=== PATIENT | male | born 1945 | race Caucasian/White ===

== ENCOUNTER 2016-12-11 09:34 | Day surgery (SDC) | payer MEDICARE, OTHER ==
[2016-12-11] VITALS (12 sets, daily range): BP systolic 132–182; BP diastolic 63–99; PULSE 61–73; RESP 13–19; TEMP 97.3–98.3; O2SAT 92–95; Ht 177.8 cm; Wt 114.8 kg
[~2016-12-11] VITALS: Ht 177.8 cm; Wt 114.8 kg
[~2016-12-11 09:34] MED LIST: ALLO300T2 PO; ASPI-557 PO; CETI-269 PO; CITA10TA49 PO; CLOP75TA33 PO; DOCU100C PO; EZET10TA PO; FENO160T9 PO; FERR1TAB86 PO; FISH1CAP29 PO; FLUT16SP12 EA NOSTRIL; FURO40TA70 PO; HYDR-4246 PO; INSU100I3 SQ; INSU100V13 SQ; INSU100V28 SQ; INSU100V8 SQ; LABE100T PO; LEVO50TA72 PO; LORA1TAB3 PO; METO5TAB2 PO; MULT-795 PO; ONDA4TAB4 PO; POTA10TA92 PO; PRIM50TA30 PO; PROP60CA2 PO; ROSU10TA PO; TAMS0.4C20 PO; TEMA15CA PO; TIMO15DR15 BOTH EYES
--- OUTSIDE RECORDS SUMMARY | 2016-12-11 09:39 | XMS REPORT | Referral Summary ---
Author Author [facility] Organization [facility] Address Unknown Phone Unavailable Care Team Providers Care Graphic Design Assistant Name Role Phone ShamikaelmaPablo Primary Care Physician [phone] Encounter [facility] [id number] Date(s): 09/18/15 - 09/23/15 [facility] [address] [place] [address] [phone] Discharge Disposition: 01-Home or Self Care Attending Physician: Edy Rutherford MD Admitting Physician: Edy Rutherford MD Vital Signs Most recent to 1 oldest [Reference Range]: Temperature Oral 37 degC [35.8-37.3 degC] (09/23/15 11:00 AM) Temperature Skin 36.3 degC [36-37 degC] (09/18/15 3:05 PM) Temperature Rectal 37 degC [36.3-37.8 degC] (09/18/15 11:53 PM) Peripheral Pulse 81 bpm Rate [60-100 bpm] (09/23/15 11:00 AM) Heart Rate Monitored 83 bpm [60-100 bpm] (09/18/15 3:05 PM) Respiratory Rate 20 br/min [14-20 br/min] (09/23/15 11:00 AM) Blood Pressure 170/64 mmHg [90-140/60-90 mmHg] *HI* (09/23/15 11:41 AM) Mean Arterial 90 mmHg Pressure, Cuff (09/18/15 3:05 PM) SpO2 96 % (09/23/15 11:00 AM) Problem List Condition Effective Dates Status Health Status Informant Acute Resolved pain(Confirmed) Allergies(Confirmed) Active Anxiety(Confirmed) Active patient At risk for unstable Resolved blood glucose level(Confirmed)1 At risk of pressure Resolved sore(Confirmed) Bowel Resolved dysfunction(Confirme d)2 Depression(Confirmed Active patient ) High Active cholesterol(Confirme d) Hypertension(Confirm Active patient ed) Impaired skin Resolved integrity(Confirmed) 3 Obesity(Confirmed) Active patient Adenomatous rectal Active polyp(Confirmed) Tissue perfusion Resolved alteration(Confirmed )4 Tobacco Resolved patient user(Confirmed) Type 2 1985 Active diabetes(Confirmed) 1Problem added automatically by system based on initiation of At Risk for Unstable Blood Glucose Plan of Care 2Problem added automatically by system based on initiation of Bowel Dysfunction Plan of Care 3Problem added automatically by system based on initiation of Impaired Skin Integrity Plan of Care 4Problem added automatically by system based on initiation of Tissue Perfusion Cerebral Plan of Care Allergies, Adverse Reactions, Alerts No Known Allergies Medications allopurinol 300 mg, Oral, Daily, 0 Refill(s) Start Date: 12/05/14 Status: Ordered aspirin 81 mg, Oral, Daily, 0 Refill(s) Start Date: 12/05/14 Status: Ordered Centrum Silver 1 tabs, Oral, Daily, 0 Refill(s) Start Date: 12/05/14 Status: Ordered cetirizine 10 mg, Oral, BID, 0 Refill(s) Start Date: 12/05/14 Status: Ordered citalopram 10 mg oral tablet 1 tabs, Oral, Daily, 0 Refill(s) Start Date: 12/05/14 Status: Ordered clopidogrel 75 mg oral tablet 75 mg 1 tabs, Oral, Daily, # 30 tabs, 0 Refill(s) Start Date: 06/20/15 Status: Ordered Crestor 10 mg oral tablet 10 mg 1 tabs, Oral, Bedtime (once a day), 0 Refill(s) Start Date: 09/18/15 Status: Ordered DSS 100 mg oral capsule 200 mg 2 caps, Oral, Daily, 0 Refill(s) Start Date: 08/15/15 Status: Ordered fenofibrate 160 mg oral tablet 1 tabs, Oral, Daily, 0 Refill(s) Start Date: 12/05/14 Status: Ordered ferrous sulfate 325 mg, Oral, Mon//Fr, 0 Refill(s) Start Date: 12/05/14 Status: Ordered Fish Oil 1000 mg oral capsule 1,000 mg 1 caps, Oral, Daily, 0 Refill(s) Start Date: 06/20/15 Status: Ordered fluticasone 50 mcg/inh nasal spray 2 sprays, Nasal, BID, 0 Refill(s) Start Date: 12/05/14 Status: Ordered furosemide 40 mg oral tablet 1 tabs, Oral, Daily, 0 Refill(s) Start Date: 12/05/14 Status: Ordered labetalol 100 mg oral tablet 100 mg 1 tabs, Oral, BID, # 60 tabs, 0 Refill(s) Start Date: 06/20/15 Status: Ordered Lantus 70 units, SubCutaneous, Bedtime (once a day), 0 Refill(s) Start Date: 12/16/14 Status: Ordered Lantus 45 units, SubCutaneous, qAM, 0 Refill(s) Start Date: 12/16/14 Status: Ordered levothyroxine 50 mcg, Oral, Daily, 0 Refill(s) Start Date: 12/05/14 Status: Ordered LORazepam 1 mg, Oral, TID, as needed for anxiety, 0 Refill(s) Start Date: 12/05/14 Status: Ordered metoclopramide 5 mg oral tablet 5 mg 1 tabs, Oral, TID, 30 minutes before meals, 0 Refill(s) Start Date: 12/05/14 Status: Ordered nitroglycerin 0.4 mg sublingual tablet 0.4 mg 1 tabs, SubLingual, q5min, Angina/Chest Pain, 0 Refill(s) Start Date: 12/17/14 Status: Ordered NovoLOG FlexPen See Instructions, 25,23.25 SubCutaneous TIDAC, 0 Refill(s) Start Date: 06/20/15 Status: Ordered Percocet 5/325 oral tablet 1-2 tabs, Oral, q4hr, Pain Moderate (4-6), 0 Refill(s) Start Date: 09/23/15 Status: Ordered potassium chloride 10 mEq oral tablet, extended release 1 tabs, Oral, Daily, 0 Refill(s) Start Date: 12/05/14 Status: Ordered primidone 50 mg oral tablet 150 mg 3 tabs, Oral, TID, # 180 tabs, 0 Refill(s) Start Date: 06/20/15 Status: Ordered propranolol 60 mg oral capsule, extended release 60 mg 1 caps, Oral, Daily, 0 Refill(s) Start Date: 12/05/14 Status: Ordered Saline Mist 1 sprays, Nasal, QID, 0 Refill(s) Start Date: 09/18/15 Status: Ordered tamsulosin 0.4 mg, Oral, Daily, 0 Refill(s) Start Date: 12/05/14 Status: Ordered temazepam 15 mg oral capsule 15 mg 1 caps, Oral, Bedtime (once a day), as needed for sleep, 0 Refill(s) Start Date: 06/20/15 Status: Ordered Timoptic Ocudose 0.5% ophthalmic solution 1 drops, Eye-Both, BID, 0 Refill(s) Start Date: 12/05/14 Status: Ordered Zetia 10 mg oral tablet 10 mg 1 tabs, Oral, Daily, # 30 tabs, 0 Refill(s) Start Date: 06/20/15 Status: Ordered Results Hematology Most recent to 1 oldest [Reference Range]: WBC [4.8-10.8 6.1 10*3/uL 10*3/uL] (09/22/15 8:46 AM) RBC [4.60-6.20] 3.40 *LOW* (09/22/15 8:46 AM) Hgb [14.0-18.0 10.4 gm/dL gm/dL] *LOW* (09/22/15 8:46 AM) Hct [42.0-52.0 %] 31.9 % *LOW* (09/22/15 8:46 AM) MCV [82.0-99.0 fL] 93.8 fL (09/22/15 8:46 AM) MCH [27.0-32.0 pg] 30.6 pg (09/22/15 8:46 AM) MCHC [32.0-36.0 32.6 gm/dL gm/dL] (09/22/15 8:46 AM) RDW [11.5-14.5 %] 14.3 % (09/22/15 8:46 AM) Platelet [150-400 302 10*3/uL 10*3/uL] (09/22/15 8:46 AM) MPV [9.4-12.3 fL] 9.1 fL *LOW* (09/22/15 8:46 AM) Chemistry Most recent to 1 oldest [Reference Range]: Sodium Lvl [136-144 134 mEq/L mEq/L] *LOW* (09/23/15 9:21 AM) Potassium Lvl 3.8 mEq/L [3.6-5.1 mEq/L] (09/23/15 9:21 AM) Chloride [99-109 101 mEq/L mEq/L] (09/23/15 9:21 AM) CO2 [22-32 mEq/L] 25 mEq/L (09/23/15 9:21 AM) AGAP [3-20] 8 (09/23/15 9:21 AM) BUN [4-20 mg/dL] 12 mg/dL (09/23/15 9:21 AM) Glucose Lvl [70-100 291 mg/dL mg/dL] *HI* (09/23/15 9:21 AM) Creatinine Lvl 1.10 mg/dL [0.64-1.27 mg/dL] (09/23/15 9:21 AM) eGFR [>60] >60 1 (09/23/15 9:21 AM) Calcium Lvl 8.9 mg/dL [8.6-10.0 mg/dL] (09/23/15 9:21 AM) Albumin Lvl [3.5-4.8 3.1 gm/dL gm/dL] *LOW* (09/23/15 9:21 AM) Magnesium Lvl 1.9 mg/dL [1.8-2.5 mg/dL] (09/21/15 5:24 AM) Phosphorus [2.4-4.7 2.3 mg/dL 2 mg/dL] *LOW* (09/23/15 9:21 AM) Blood Glucose, 275 mg/dL Capillary [74-106 *HI* mg/dL] (09/23/15 11:40 AM) 1Result Comment: Multiply eGFR results by 1.21 for race. 2Result Comment: High dosages of liposomal Amphotericin B (AmBisome) therapy or other drug preparations that use a liposomal envelope to facilitate drug delivery may cause falsely elevated results for phosphorus. Immunizations Vaccine Date Refusal Reason tetanus-diphth toxoids (Td) adult/adol 02/09/02 Procedures Procedure Date Related Diagnosis Body Site Resection Colon Low Anterior Laparoscopic 09/18/15 Robotic1 Endoscopy Microsurgery Transanal2 08/17/15 Colonoscopy 06/08/15 Bypass Graft Coronary Artery3 12/12/14 [place] [facility] Endoscopic (Left)4 12/12/14 Hernia repair5 2010 Hernia 1971 Hernia 1969 Tonsillectomy and adenoidectomy 1945 REPLACE EAR DRUM - LEFT 1auto-populated from documented surgical case 2auto-populated from documented surgical case 3auto-populated from documented surgical case 4auto-populated from documented surgical case 5X 3 Social History Social History Type Response Smoking Status Former smoker Assessment and Plan No data available for this section
--- OUTSIDE RECORDS SUMMARY | 2016-12-11 09:39 | XMS REPORT | Continuity of Care Document ---
Author Author [facility] Organization [facility] Address Unknown Phone Unavailable Allergies Active Description Code Type Severity Reaction Onset Reported/Identified Relationship to Patient Clinical Status Yes No Known Allergies NKMA N/A N/A 12/05/2014 Yes No Known Allergies NKMA N/A N/A 12/05/2014 Medications Medication Packaging Start Date Stop Date Route Dosage Sig hydrALAZINE(hydrALAZINE) 0.5 mL 12/05/2014 12/13/2014 IV Push 10 mg 10 mg, IV Push, q4hr, PRN: Hypertension/High Blood Pressure morphine(morphine) 1 mL 12/05/2014 12/12/2014 IV Push 2 mg 2 mg, IV Push, q2hr, PRN: Angina/Chest Pain nitroglycerin(nitroglycerin) 1 tabs 12/05/2014 12/17/2014 SubLingual 0.4 mg 0.4 mg, SubLingual, q5min, PRN: Angina/Chest Pain enoxaparin(Lovenox) 0.8 mL 12/05/2014 12/11/2014 SubCutaneous 120 mg 120 mg=0.8 mL, SubCutaneous, q12hr aspirin(aspirin) 1 tabs 12/05/2014 12/12/2014 Oral 81 mg 81 mg , Oral, Daily losartan-hydrochlorothiazide(losartan-hydrochlorothiazide 100 mg-12.5 mg oral tablet) 1 tabs 12/05/2014 09/18/2015 Oral 1 tabs, Oral, Daily, 0 Refill(s) fluticasone nasal(fluticasone 50 mcg/inh nasal spray) 2 sprays 12/05/2014 Nasal 2 sprays, Nasal, BID, 0 Refill(s) labetalol(labetalol) 12/05/2014 12/17/2014 Oral 100 mg 100 mg, Oral, BID, 0 Refill(s) clopidogrel(clopidogrel) 12/05/2014 12/17/2014 Oral 75 mg 75 mg , Oral, Daily, 0 Refill(s) acetaminophen-diphenhydrAMINE(acetaminophen- diphenhydrAMINE 500 mg-25 mg oral tablet) 2 tabs 12/05/2014 12/17/2014 Oral 2 tabs, Oral, Bedtime (once a day), 0 Refill(s) atorvastatin(atorvastatin) 12/05/2014 06/20/2015 Oral 80 mg 80 mg, Oral, Bedtime (once a day), 0 Refill(s) primidone(primidone) 12/05/2014 08/15/2015 Oral 250 mg 250 mg, Oral, BID, 0 Refill(s) metoclopramide(metoclopramide 5 mg oral tablet) 1 tabs 12/05/2014 Oral 5 mg 5 mg=1 tabs, Oral, TID, 30 minutes before meals, 0 Refill(s) levothyroxine(levothyroxine) 12/05/2014 Oral 50 mcg 50 mcg, Oral, Daily, 0 Refill(s) potassium chloride(potassium chloride 10 mEq oral tablet, extended release) 1 tabs 12/05/2014 Oral 10 mEq 1 tabs, Oral, Daily, 0 Refill(s) fenofibrate(fenofibrate 160 mg oral tablet) 1 tabs 12/05/2014 Oral 160 mg 1 tabs, Oral, Daily, 0 Refill(s) cetirizine(cetirizine) 12/05/2014 Oral 10 mg 10 mg, Oral, BID , 0 Refill(s) citalopram(citalopram 10 mg oral tablet) 1 tabs 12/05/2014 Oral 10 mg 1 tabs, Oral, Daily, 0 Refill(s) tamsulosin(tamsulosin) 12/05/2014 Oral 0.4 mg 0.4 mg, Oral, Daily, 0 Refill(s) aspirin(aspirin) 12/05/2014 Oral 81 mg 81 mg, Oral, Daily, 0 Refill(s) allopurinol(allopurinol) 12/05/2014 Oral 300 mg 300 mg, Oral, Daily, 0 Refill(s) levETIRAcetam(levETIRAcetam 250 mg oral tablet) 1 tabs 12/05/2014 09/18/2015 Oral 250 mg 1 tabs, Oral, BID, 0 Refill(s) propranolol(propranolol 60 mg oral capsule, extended release) 1 caps 2014 Oral 60 mg 60 mg=1 caps, Oral, Daily, 0 Refill(s) furosemide(furosemide 40 mg oral tablet) 1 tabs 12/05/2014 Oral 40 mg 1 tabs, Oral, Daily, 0 Refill(s) ferrous sulfate(ferrous sulfate) 12/05/2014 Oral 325 mg 325 mg, Oral, Mon//, 0 Refill(s) LORazepam(LORazepam) 12/05/2014 Oral 1 mg 1 mg, Oral, TID, PRN: as needed for anxiety, 0 Refill(s) zolpidem(zolpidem 10 mg oral tablet) 1 tabs 12/05/20142015 Oral 10 mg 1 tabs, Oral, Bedtime (once a day), PRN: as needed for sleep, 0 Refill(s) insulin aspart(NovoLOG) 12/05/2014 12/16/2014 SubCutaneous 46 units 46 units, SubCutaneous, With Dinner, 0 Refill(s) insulin aspart(NovoLOG) 12/05/2014 12/16/2014 SubCutaneous 37 units 37 units, SubCutaneous, With Lunch, 0 Refill(s) insulin glargine(Lantus) 12/05/2014 12/16/2014 SubCutaneous 80 units 80 units, SubCutaneous, Bedtime (once a day), 2300, 0 Refill(s) timolol ophthalmic(Timoptic Ocudose 0.5% ophthalmic solution) 1 drops 2014 Eye-Both 1 drops, Eye-Both, BID, 0 Refill(s) allopurinol(allopurinol) 1 tabs 12/05/2014 12/17/2014 Oral 300 mg 300 mg, Oral, Daily acetaminophen-diphenhydrAMINE(acetaminophen- diphenhydrAMINE 500 mg-25 mg oral tablet) 2 tabs 12/05/2014 12/13/2014 Oral 2 tabs, Oral, Bedtime (once a day) fluticasone nasal(fluticasone 50 mcg/inh nasal spray) 2 sprays 12/05/2014 12/17/2014 Nasal 100 mcg 100 mcg=2 sprays, Nasal, BID insulin lispro(insulin lispro) 0.46 mL 12/05/2014 12/05/2014 SubCutaneous 46 units 46 units, SubCutaneous, With Dinner atorvastatin(atorvastatin) 1 tabs 12/05/2014 12/17/2014 Oral 80 mg 80 mg, Oral, Bedtime (once a day) labetalol(labetalol) 1 tabs 12/05/2014 12/08/2014 Oral 100 mg 100 mg, Oral, BID furosemide(furosemide) 1 tabs 12/05/2014 12/12/2014 Oral 40 mg 40 mg, Oral, Daily fenofibrate(fenofibrate 160 mg oral tablet) 1 tabs 12/05/2014 12/13/2014 Oral 160 mg 160 mg=1 tabs, Oral, With Breakfast insulin glargine(Lantus) 0.4 mL 12/05/2014 12/12/2014 SubCutaneous 40 units 40 units=0.4 mL, SubCutaneous, Bedtime (once a day) citalopram(citalopram) 1 tabs 12/05/2014 12/17/2014 Oral 10 mg 10 mg, Oral, Daily ferrous sulfate(ferrous sulfate) 1 tabs 12/05/2014 12/12/2014 Oral 325 mg 325 mg, Oral, Fri// losartan-hydrochlorothiazide(losartan-hydrochlorothiazide 100 mg-12.5 mg oral tablet) 1 tabs 12/05/2014 12/13/2014 Oral 1 tabs, Oral, Daily propranolol(propranolol) 1 caps 12/05/2014 12/12/2014 Oral 60 mg 60 mg, Oral, Daily primidone(primidone) 1 tabs 12/05/2014 12/17/2014 Oral 250 mg 250 mg=1 tabs, Oral, BID tamsulosin(tamsulosin) 1 caps 12/05/2014 12/17/2014 Oral 0.4 mg 0.4 mg, Oral, Daily metoclopramide(metoclopramide) 1 tabs 12/05/2014 12/12/2014 Oral 5 mg 5 mg, Oral, TIDAC LORazepam(LORazepam) 1 tabs 12/05/2014 12/13/2014 Oral 1 mg 1 mg , Oral, TID, PRN: Anxiety potassium chloride(potassium chloride 10 mEq oral tablet, extended release) 1 tabs 12/05/2014 12/13/2014 Oral 10 mEq 10 mEq=1 tabs, Oral, Daily timolol ophthalmic(timolol 0.5% ophthalmic solution) 1 drops 12/05/2014 12/17/2014 Eye-Both 1 drops, Eye-Both, BID levETIRAcetam(levETIRAcetam) 0.5 tabs 12/05/2014 12/12/2014 Oral 250 mg 250 mg, Oral, BID levothyroxine(levothyroxine) 1 tabs 12/05/2014 12/17/2014 Oral 50 mcg 50 mcg, Oral, Daily insulin lispro(insulin lispro HumaLOG sliding scale High) 12/05/2014 12/09/2014 SubCutaneous Sliding Scale High, SubCutaneous, As Indicated , PRN: Hyperglycemia/High Blood Sugar insulin lispro(insulin lispro) 0.2 mL 12/05/2014 12/05/2014 SubCutaneous 20 units 20 units, SubCutaneous, Once sodium chloride nasal([place] 0.65% nasal spray) 2 sprays 12/09/2014 12/17/2014 Nasal 2 sprays, Nasal, q1hr, PRN: Dry Nasal Passages mupirocin topical(Bactroban) 1 jakob 12/11/2014 12/12/2014 Nasal 1 jakob, Nasal, BID acetaminophen(acetaminophen) 1 supp 12/11/2014 12/14/2014 Rectal 650 mg 650 mg=1 supp, Rectal, q4hr, PRN: Pain zolpidem(Ambien) 1 tabs 12/11/2014 12/12/2014 Oral 5 mg 5 mg=1 tabs, Oral, Bedtime (once a day), PRN: Insomnia potassium chloride(potassium chloride 20 mEq oral tablet, extended release) 1 tabs 12/11/2014 12/11/2014 Oral 20 mEq 20 mEq=1 tabs, Oral, Once glucagon(glucagon) 1 mL 12/12/2014 12/12/2014 IntraMuscular 1 mg 1 mg=1 mL, IntraMuscular, As Indicated, PRN: Hypoglycemia/Low Blood Sugar Dextrose 50% in Water(Dextrose 50% in Water Injection) 25 mL 12/12/2014 12/12/2014 IV Push 12.5 g 12.5 g=25 mL, IV Push, q15min, PRN: Hypoglycemia/Low Blood Sugar Dextrose 10% in Water(Dextrose 10% in Water 250 mL) 250 mL 12/12/2014 12/12/2014 IV 50 mL/hr, IV metoclopramide(Reglan) 2 mL 12/12/2014 12/17/2014 IV Push 10 mg 10 mg=2 mL, IV Push, q6hr, PRN: Nausea HYDROcodone-acetaminophen([place] 5 mg-325 mg oral tablet) 12/12/2014 12/13/2014 Oral 1-2 tabs, Oral, q4hr, PRN: Pain Moderate (4-6) docusate(Colace) 2 caps 12/12/2014 12/17/2014 Oral 200 mg 200 mg=2 caps, Oral, Daily morphine(morphine) 12/12/2014 12/13/2014 IV Push 2-4 mg, IV Push, q2hr, PRN: Pain Severe (7-10) ondansetron(Zofran) 2 mL 12/12/2014 12/14/2014 IV Push 4 mg 4 mg= 2 mL, IV Push, q6hr, PRN: Nausea glucagon(glucagon) 1 mL 12/12/2014 12/17/2014 IntraMuscular 1 mg 1 mg=1 mL, IntraMuscular, As Indicated, PRN: Hypoglycemia/Low Blood Sugar Al hydroxide/Mg hydroxide/simethicone(Maalox Advanced Maximum Strength oral suspension) 15 mL 12/12/2014 12/17/2014 Oral 15 mL, Oral, q4hr, PRN: GERD/Heartburn Sodium Chloride 0.9%(Sodium Chloride 0.9% 250 mL) 250 mL 12/12/2014 12/13/2014 IV 10 mL/hr, IV polyethylene glycol 3350(MiraLax) 1 packets 12/12/20142014 Oral 17 g 17 g=1 packets, Oral, Daily albuterol(albuterol 5 mg/mL (0.5%) inhalation solution) 0.5 mL 12/12/2014 12/13/2014 NEB 2.5 mg 2.5 mg=0.5 mL, NEB, q4hr (scheduled), PRN: Other (See Comment) Dextrose 50% in Water(Dextrose 50% in Water Injection) 25 mL 12/12/2014 12/17/2014 IV Push 12.5 g 12.5 g=25 mL, IV Push, q15min, PRN: Hypoglycemia/Low Blood Sugar Dextrose 10% in Water(Dextrose 10% in Water 250 mL) 250 mL 12/12/2014 12/14/2014 IV 50 mL/hr, IV heparin(heparin) 1 mL 12/12/2014 12/17/2014 SubCutaneous 5,000 units 5,000 units=1 mL, SubCutaneous, TID senna(Senokot) 1 tabs 12/12/2014 12/17/2014 Oral 8.6 mg 8.6 mg=1 tabs, Oral, BID famotidine(Pepcid) 2 mL 12/12/2014 12/14/2014 IV Push 20 mg 20 mg =2 mL, IV Push, BID acetaminophen(acetaminophen) 1 supp 12/12/2014 12/17/2014 Rectal 650 mg 650 mg=1 supp, Rectal, q4hr, PRN: Fever aspirin(aspirin) 1 tabs 12/12/2014 12/17/2014 Oral 81 mg 81 mg= 1 tabs, Oral, Daily albumin human(albumin human 5% intravenous solution) 250 mL 12/12/2014 12/12/2014 IV Piggyback 12.5 g 12.5 g=250 mL, IV Piggyback, Once albumin human(albumin human 5% intravenous solution) 250 mL 12/12/2014 12/12/2014 IV Piggyback 12.5 g 12.5 g=250 mL, IV Piggyback, Once albuterol(albuterol 5 mg/mL (0.5%) inhalation solution) 0.5 mL 12/12/2014 12/13/2014 NEB 2.5 mg 2.5 mg=0.5 mL, NEB, q4hr (scheduled) insulin glargine(Lantus) 0.5 mL 12/12/2014 12/17/2014 SubCutaneous 50 units 50 units=0.5 mL, SubCutaneous, qAM insulin glargine(Lantus) 0.3 mL 12/12/2014 12/14/2014 SubCutaneous 30 units 30 units=0.3 mL, SubCutaneous, qAM furosemide(Lasix) 2 mL 12/13/2014 12/13/2014 IV Push 20 mg 20 mg =2 mL, IV Push, TID levETIRAcetam(levETIRAcetam) 0.5 tabs 12/13/2014 12/17/2014 Oral 250 mg 250 mg=0.5 tabs, Oral, BID metoprolol(Lopressor) 0.5 tabs 12/13/2014 12/17/2014 Oral 12.5 mg 12.5 mg=0.5 tabs, Oral, BID calcium carbonate(Tums) 2 tabs 12/13/2014 12/17/2014 Oral 1,000 mg 1,000 mg=2 tabs, Oral, TIDPC insulin glargine(Lantus) 0.2 mL 12/13/2014 12/13/2014 SubCutaneous 20 units 20 units=0.2 mL, SubCutaneous, Once albuterol(albuterol 5 mg/mL (0.5%) inhalation solution) 0.5 mL 12/13/2014 12/17/2014 NEB 2.5 mg 2.5 mg=0.5 mL, NEB, q2hr (scheduled), PRN: Other (See Comment) insulin lispro(insulin lispro HumaLOG sliding scale Medium ) 12/13/2014 12/17/2014 SubCutaneous Sliding Scale Medium, SubCutaneous, AC and HS , PRN: Hyperglycemia/High Blood Sugar HYDROmorphone(Dilaudid range dose) 1 mL 12/13/2014 12/15/2014 IV Push 1 mg 1 mg=1 mL, IV Push, q2hr, PRN: Pain Severe (7-10) ketorolac(Toradol) 1 mL 12/13/2014 12/13/2014 IV Push 15 mg 15 mg =1 mL, IV Push, Once bumetanide(Bumex) 4 mL 12/13/2014 12/17/2014 Bolus IV 1 mg 1 mg= 4 mL, Bolus IV, BID oxyCODONE-acetaminophen(Percocet 5/325 oral tablet range dose) 2 tabs 12/13/2014 12/13/2014 Oral 2 tabs, Oral, q4hr, PRN: Pain Moderate (4-6 ) oxyCODONE(oxyCODONE) 12/13/2014 12/13/2014 Oral 5-10mg, Oral , q4hr, PRN: Pain Moderate (4-6) oxyCODONE(oxyCODONE range dose) 2 tabs 12/13/2014 12/15/2014 Oral 10 mg 10 mg=2 tabs, Oral, q4hr, PRN: Pain Moderate (4-6) ondansetron(Zofran) 2 mL 12/14/2014 12/17/2014 IV Push 4 mg 4 mg= 2 mL, IV Push, q6hr, PRN: Nausea or Vomiting traZODone(traZODone) 1 tabs 12/14/2014 12/15/2014 Oral 150 mg 150 mg=1 tabs, Oral, Bedtime (once a day), PRN: Insomnia loratadine(loratadine) 1 tabs 12/15/2014 12/17/2014 Oral 10 mg 10 mg=1 tabs, Oral, Daily insulin glargine(Lantus) 0.8 mL 12/15/2014 12/17/2014 SubCutaneous 80 units 80 units=0.8 mL, SubCutaneous, Bedtime (once a day) zolpidem(Ambien) 1 tabs 12/15/2014 12/17/2014 Oral 5 mg 5 mg=1 tabs, Oral, Bedtime (once a day), PRN: Sleep HYDROmorphone(Dilaudid range dose) 1 mL 12/15/2014 12/17/2014 IV Push 1 mg 1 mg=1 mL, IV Push, q2hr, PRN: Pain Severe (7-10) oxyCODONE-acetaminophen(Percocet 7.5/325 oral tablet range dose) 2 tabs 12/15/2014 12/17/2014 Oral 2 tabs, Oral, q4hr, PRN: Pain Moderate (4-6 ) ketorolac(Toradol) 1 mL 12/15/2014 12/16/2014 IV Push 15 mg 15 mg =1 mL, IV Push, q6hr lactulose(lactulose) 30 mL 12/16/2014 12/17/2014 Oral 20 g 20 g= 30 mL, Oral, TID insulin glargine(Lantus) 12/16/2014 SubCutaneous 45 units 45 units, SubCutaneous, qAM, 0 Refill(s) insulin glargine(Lantus) 12/16/2014 SubCutaneous 70 units 70 units, SubCutaneous, Bedtime (once a day), 0 Refill(s) insulin lispro(HumaLOG) 12/16/2014 12/16/2014 SubCutaneous 40 units 40 units, SubCutaneous, TIDWM, 0 Refill(s) insulin lispro(HumaLOG) 12/16/2014 12/17/2014 SubCutaneous 40 units 40 units, SubCutaneous, TIDWM, 0 Refill(s) insulin lispro(insulin lispro) 0.2 mL 12/16/2014 12/16/2014 SubCutaneous 20 units 20 units=0.2 mL, SubCutaneous, Once insulin lispro(HumaLOG) 0.3 mL 12/17/2014 12/17/2014 SubCutaneous 30 units 30 units=0.3 mL, SubCutaneous, TIDWM insulin lispro(HumaLOG 100 units/mL subcutaneous solution) 12/17/2014 08/17/2015 SubCutaneous 30 units 30 units, SubCutaneous, TIDWM, 0 Refill(s) metoprolol(Lopressor) 0.5 tabs 12/17/2014 09/18/2015 Oral 12.5 mg 12.5 mg=0.5 tabs, Oral, BID, 0 Refill(s) nitroglycerin(nitroglycerin 0.4 mg sublingual tablet) 1 tabs 12/17/2014 SubLingual 0.4 mg 0.4 mg=1 tabs, SubLingual, q5min, PRN: Angina/Chest Pain, 0 Refill(s) oxyCODONE-acetaminophen(oxyCODONE-acetaminophen 7.5 mg-325 mg oral tablet) 2 tabs 12/17/2014 08/15/2015 Oral 2 tabs, Oral, q4hr, PRN: Pain Moderate (4-6), 0 Refill(s) timolol ophthalmic(Timoptic Ocudose 0.5% ophthalmic solution) 1 drops 201412/17/2014 Eye-Both 1 drops, Eye-Both, BID, 15 mL, 0 Refill(s) rosuvastatin(Crestor 40 mg oral tablet) 1 tabs 06/20/201509/18 Oral 40 mg 40 mg=1 tabs, Oral, Daily, 30 tabs, 0 Refill(s) clopidogrel(clopidogrel 75 mg oral tablet) 1 tabs 06/20/2015 Oral 75 mg 75 mg=1 tabs, Oral, Daily, 30 tabs, 0 Refill(s) labetalol(labetalol 100 mg oral tablet) 1 tabs 06/20/2015 Oral 100 mg 100 mg=1 tabs, Oral, BID, 60 tabs, 0 Refill(s) losartan-hydrochlorothiazide(losartan-hydrochlorothiazide 50 mg-12.5 mg oral tablet) 1 tabs 06/20/2015 08/17/2015 Oral 1 tabs, Oral, Daily, 30 tabs, 0 Refill(s) metoclopramide(metoclopramide 10 mg oral tablet) 1 tabs 06/20/2015 08/15/2015 Oral 10 mg 10 mg=1 tabs, Oral, TID, 0 Refill(s) primidone(primidone 50 mg oral tablet) 3 tabs 06/20/2015 Oral 150 mg 150 mg=3 tabs, Oral, TID, 180 tabs, 0 Refill(s) temazepam(temazepam 15 mg oral capsule) 1 caps 06/20/2015 Oral 15 mg 15 mg=1 caps, Oral, Bedtime (once a day), PRN: as needed for sleep, 0 Refill(s) ezetimibe(Zetia 10 mg oral tablet) 1 tabs 06/20/2015 Oral 10 mg 10 mg=1 tabs, Oral, Daily, 30 tabs, 0 Refill(s) Lactated Ringers Injection(Lactated Ringers Injection 1, 000 mL) 1,000 mL 201508/17/2015 IV 10 mL/hr, IV midazolam(Versed) 1 mL 08/17/2015 08/17/2015 IV Push 1 mg 1 mg= 1 mL, IV Push, q10min, PRN: Anxiety HYDROcodone-acetaminophen([place] 5 mg-325 mg oral tablet) 08/17/2015 08/17/2015 Oral 1-2 tabs, Oral, q4hr, PRN: Pain Moderate (4-6) ondansetron(Zofran) 2 mL 08/17/2015 08/17/2015 IV Push 4 mg 4 mg= 2 mL, IV Push, q6hr, PRN: Nausea or Vomiting HYDROcodone-acetaminophen([place] 5 mg-325 mg oral tablet) 08/17/2015 09/18/2015 Oral 1-2 tabs, Oral, q4hr, PRN: Pain Moderate (4-6), 0 Refill (s) ondansetron(Zofran) 2 mL 08/17/2015 08/17/2015 IV Push 4 mg 4 mg= 2 mL, IV Push, Once, PRN: Nausea or Vomiting HYDROmorphone(Dilaudid) 0.5 mL 08/17/2015 08/17/2015 IV Push 0.5 mg 0.5 mg=0.5 mL, IV Push, q5min, PRN: Pain alvimopan(Entereg) 1 caps 09/15/2015 09/23/2015 Oral 12 mg 12 mg= 1 caps, Oral, BID heparin(heparin) 1 mL 09/15/2015 09/18/2015 SubCutaneous 5,000 units 5,000 units=1 mL, SubCutaneous, Once rosuvastatin(Crestor 10 mg oral tablet) 1 tabs 09/18/2015 Oral 10 mg 10 mg=1 tabs, Oral, Bedtime (once a day), 0 Refill(s) Lactated Ringers Injection(Lactated Ringers Injection 1, 000 mL) 1,000 mL 201509/18/2015 IV 10 mL/hr, IV midazolam(Versed) 2 mL 09/18/2015 09/18/2015 IV Push 2 mg 2 mg= 2 mL, IV Push, Once midazolam(Versed) 2 mL 09/18/2015 09/18/2015 IV Push 2 mg 2 mg= 2 mL, IV Push, Once ondansetron(Zofran) 2 mL 09/18/2015 09/18/2015 IV Push 4 mg 4 mg= 2 mL, IV Push, Once HYDROmorphone(Dilaudid) 0.5 mL 09/18/2015 09/18/2015 IV Push 0.5 mg 0.5 mg=0.5 mL, IV Push, q5min, PRN: Pain insulin regular(insulin regular 100 units/mL human recombinant injectable solution) 0.03 mL 09/18/2015 09/18/2015 IV Push 3 units 3 units=0.03 mL, IV Push, Once Lactated Ringers Injection(Lactated Ringers Injection 1, 000 mL) 1,000 mL 201509/18/2015 IV 250 mL/hr, IV, Stop: 09/18/15 16:43:00 BLINTZE ROLLER ondansetron(Zofran) 2 mL 09/18/2015 09/23/2015 IV Push 4 mg 4 mg= 2 mL, IV Push, q6hr, PRN: Nausea or Vomiting HYDROmorphone(HYDROmorphone MET[employer]ICATING INSPECTOR 30 mg) 30 mL 09/18/20152015 IV 30 mg [employer]ATING [employer]OR, IV, Stop: 11/17/15 15:43:00 CDT enoxaparin(Lovenox) 0.4 mL 09/18/2015 09/19/2015 SubCutaneous 40 mg 40 mg=0.4 mL, SubCutaneous, Daily HYDROmorphone(Dilaudid) 09/18/2015 09/23/2015 IV Push 0.2- 0.5 mg, IV Push, q2hr, PRN: Pain Severe (7-10) gabapentin(Neurontin) 1 caps 09/18/2015 09/18/2015 Oral 300 mg 300 mg=1 caps, Oral, TID Lactated Ringers Injection(Lactated Ringers Injection 1, 000 mL) 1,000 mL 201509/21/2015 IV 50 mL/hr, IV oxyCODONE-acetaminophen(Percocet 5/325 oral tablet) 09/18/2015 09/23/2015 Oral 1-2 tabs, Oral, q4hr, PRN: Pain Moderate (4-6) docusate(Colace) 1 caps 09/18/2015 09/23/2015 Oral 100 mg 100 mg=1 caps, Oral, BID allopurinol(allopurinol) 1 tabs 09/18/2015 09/23/2015 Oral 300 mg 300 mg=1 tabs, Oral, Daily ezetimibe(Zetia) 1 tabs 09/18/2015 09/23/2015 Oral 10 mg 10 mg= 1 tabs, Oral, Daily fenofibrate(fenofibrate 160 mg oral tablet) 1 tabs 09/18/2015 09/23/2015 Oral 160 mg 160 mg=1 tabs, Oral, Daily clopidogrel(clopidogrel) 1 tabs 09/18/2015 09/23/2015 Oral 75 mg 75 mg=1 tabs, Oral, Daily citalopram(citalopram) 1 tabs 09/18/2015 09/23/2015 Oral 10 mg 10 mg=1 tabs, Oral, Daily ferrous sulfate(ferrous sulfate) 1 tabs 09/18/2015 09/23/2015 Oral 325 mg 325 mg=1 tabs, Oral, Mon//Fr aspirin(aspirin) 1 tabs 09/18/2015 09/23/2015 Oral 81 mg 81 mg= 1 tabs, Oral, Daily fluticasone nasal(fluticasone 50 mcg/inh nasal spray) 2 sprays 09/18/2015 09/23/2015 Nasal 100 mcg 100 mcg=2 sprays, Nasal, BID propranolol(propranolol) 1 caps 09/18/2015 09/23/2015 Oral 60 mg 60 mg=1 caps, Oral, Daily primidone(primidone) 3 tabs 09/18/2015 09/23/2015 Oral 150 mg 150 mg=3 tabs, Oral, TID atorvastatin(atorvastatin) 1 tabs 09/18/2015 09/23/2015 Oral 40 mg 40 mg=1 tabs, Oral, Bedtime (once a day) metoclopramide(metoclopramide) 1 tabs 09/18/2015 09/23/2015 Oral 5 mg 5 mg=1 tabs, Oral, TIDAC LORazepam(LORazepam) 1 tabs 09/18/2015 09/23/2015 Oral 1 mg 1 mg= 1 tabs, Oral, TID, PRN: Anxiety potassium chloride(potassium chloride 10 mEq oral tablet, extended release) 1 tabs 09/18/2015 09/23/2015 Oral 10 mEq 10 mEq=1 tabs, Oral, Daily labetalol(labetalol) 1 tabs 09/18/2015 09/23/2015 Oral 100 mg 100 mg=1 tabs, Oral, BID insulin detemir(Levemir) 0.45 mL 09/18/2015 09/23/2015 SubCutaneous 45 units 45 units=0.45 mL, SubCutaneous, qAM furosemide(furosemide 40 mg oral tablet) 1 tabs 09/18/2015 Oral 40 mg 40 mg=1 tabs, Oral, Daily nitroglycerin(nitroglycerin 0.4 mg sublingual tablet) 1 tabs 09/18/2015 09/23/2015 SubLingual 0.4 mg 0.4 mg=1 tabs, SubLingual, q5min, PRN: Angina/Chest Pain levothyroxine(levothyroxine) 1 tabs 09/18/2015 09/23/2015 Oral 50 mcg 50 mcg=1 tabs, Oral, Daily tamsulosin(tamsulosin) 1 caps 09/18/2015 09/23/2015 Oral 0.4 mg 0.4 mg=1 caps, Oral, Daily timolol ophthalmic(timolol maleate 0.5% ophthalmic solution ) 1 drops 09/18/2015 09/23/2015 Eye-Both 1 drops, Eye-Both, BID heparin(heparin) 1 mL 09/19/2015 09/23/2015 SubCutaneous 5,000 units 5,000 units=1 mL, SubCutaneous, q8hr (scheduled) scopolamine(scopolamine 1.5 mg transdermal film, extended release) 1 patches 09/2009/23/2015 Topical 1.5 mg 1.5 mg=1 patches, Topical, q3day oxyCODONE-acetaminophen(Percocet 5/325 oral tablet) 09/23/2015 Oral 1-2 tabs, Oral, q4hr, PRN: Pain Moderate (4-6), 0 Refill(s) Lactated Ringers Injection(Lactated Ringers Injection 500 mL) 500 mL 09/23/2016 09/23/2016 IV 20 mL/hr, IV Problems Date Dx Coded Attending Type Code Diagnosis Diagnosed By 10/09/2015 Edy Rutherford MD Final C20 Malignant neoplasm of rectum 10/09/2015 Edy Rutherford MD Final D64.9 Anemia, unspecified 10/09/2015 Edy Rutherford MD Final E11.9 Type 2 diabetes mellitus without complications 10/09/2015 Edy Rutherford MD Final E66.9 Obesity, unspecified 10/09/2015 Edy Rutherford MD Final E78.0 Pure hypercholesterolemia 10/09/2015 Edy Rutherford MD Final F32.9 Major depressive disorder, single episode, unspecified 10/09/2015 Edy Rutherford MD Final F41.9 Anxiety disorder, unspecified 10/09/2015 Edy Rutherford MD Final G47.33 Obstructive sleep apnea (adult) ( pediatric) 10/09/2015 Edy Ruhterford MD Final I12.9 Hypertensive chronic kidney disease with stage 1 through stage 4 chronic ki 10/09/2015 Edy Rutherford MD Final 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 Visit Date/Time Discharge Status Pt. Type Provider Facility Loc./Unit Complaint [id number] 09/18/2015 07:39:00 2015 13:23:00 DIS Inpatient Edy Rutherford MD [facility] [id number] Benign neoplasm of rectum [id number] 08/17/2015 07:13:00 2015 13:36:00 DIS Outpatient Edy Rutherford MD [facility] F3E Rectal Polyp [id number] 09/24/2016 05:15:47 Document Registration [id number] 09/24/2015 05:15:50 Document Registration [id number] 09/21/2015 05:16:49 Document Registration [id number] 09/20/2015 05:17:33 Document Registration [id number] 09/19/2015 05:17:34 Document Registration [id number] 09/19/2015 05:17:33 Document Registration [id number] 09/16/2015 05:16:14 Document Registration [id number] 08/18/2015 05:16:39 Document Registration [id number] 06/21/2015 05:16:21 Document Registration [id number] 05/17/2015 12:44:17 Document Registration [id number] 05/17/2015 12:29:13 Document Registration [id number] 05/17/2015 12:22:01 Document Registration [id number] 05/17/2015 12:15:16 Document Registration
--- OUTSIDE RECORDS SUMMARY | 2016-12-11 09:39 | XMS REPORT | Referral Summary ---
Author Author [facility] Organization [facility] Address Unknown Phone Unavailable Care Team Providers Care Resource Development Director Name Role Phone Pablo Prabhakar Primary Care Physician [phone] Encounter [facility] [id number] Date(s): 12/05/14 - 12/17/14 [facility] [address] [place] [address] HV [phone] Final: CORONARY ATHEROSCLEROSIS OF [place] CORONARY ARTERY Final: ACUTE POSTHEMORRHAGIC ANEMIA Final: OTHER AND UNSPECIFIED HYPERLIPIDEMIA Final: UNSPECIFIED ESSENTIAL HYPERTENSION Final: Diabetes mellitus without mention of complication, type II or unspecified type, not stated as uncontrolled Final: UNSPECIFIED GLAUCOMA Final: DEPRESSIVE DISORDER, NOT ELSEWHERE CLASSIFIED Final: ANXIETY STATE, UNSPECIFIED Final: Hypertrophy (benign) of prostate without urinary obstruction and other lower urinary tract (LUTS) Final: ABNORMAL INVOLUNTARY MOVEMENTS Final: Obstructive sleep apnea (adult) (pediatric) Final: OBESITY, UNSPECIFIED Final: HYPOCALCEMIA Final: Body Mass Index 37.0-37.9, adult [facility]ending [facility]: Francisco Last MD Admitting Physician: Francisco Last MD Vital Signs Most recent to 1 oldest [Reference Range]: Temperature Axillary 37.3 degC [35.2-36.7 degC] *HI* (12/16/14 5:00 AM) Temperature Oral 37.0 degC [35.8-37.3 degC] (12/17/14 12:00 PM) Temperature Temporal 36.9 degC Artery [36.3-37.8 (12/14/14 4:00 PM) degC] Apical Heart Rate 82 bpm [60-100 bpm] (12/12/14 5:22 AM) Peripheral Pulse 92 bpm Rate [60-100 bpm] (12/17/14 12:00 PM) Peripheral Pulse 114 bpm Rate with Activity (12/16/14 9:03 AM) Heart Rate Monitored 91 bpm [60-100 bpm] (12/15/14 3:49 AM) Respiratory Rate 18 br/min [14-20 br/min] (12/17/14 12:00 PM) Blood Pressure 136/68 mmHg [90-140/60-90 mmHg] (12/17/14 12:00 PM) Systolic Blood 150 mmHg Pressure with (12/14/14 9:35 AM) Activity Diastolic Blood 64 mmHg Pressure with (12/14/14 9:35 AM) Activity Mean Arterial 80 mmHg Pressure, Cuff (12/14/14 6:00 PM) Blood Pressure 103/54 mmHg Invasive (12/13/14 11:00 AM) [90-140/60-90 mmHg] Mean Arterial 68 mmHg Pressure, Invasive (12/13/14 11:00 AM) Systolic Blood 122 mmHg Pressure Invasive 2 (12/12/14 7:00 PM) [90-140 mmHg] Diastolic Blood 62 mmHg Pressure Invasive 2 (12/12/14 7:00 PM) [60-90 mmHg] SpO2 97 % (12/17/14 12:00 PM) Problem List Condition Effective Dates Status Health Status Informant Acute Active pain(Confirmed) Allergies(Confirmed) Active Anxiety(Confirmed) Active patient At risk of pressure Active sore(Confirmed) Depression(Confirmed Active patient ) High Active cholesterol(Confirme d) Hypertension(Confirm Active patient ed) Impaired skin Active integrity(Confirmed) 1 Obesity(Confirmed) Active patient Adenomatous rectal Active polyp(Confirmed) Tissue perfusion Active alteration(Confirmed )2 Tobacco Resolved patient user(Confirmed) Type 2 1985 Active diabetes(Confirmed) 1Problem added automatically by system based on initiation of Impaired Skin Integrity Plan of Care 2Problem added automatically by [...] Refill(s) Start Date: 06/20/15 Status: Ordered Crestor 40 mg oral tablet 40 mg 1 tabs, Oral, Daily, # 30 tabs, 0 Refill(s) Start Date: 06/20/15 Status: Ordered fenofibrate 160 mg oral tablet 1 tabs, Oral, Daily, 0 Refill(s) Start Date: 12/05/14 Status: Ordered ferrous sulfate 325 mg, Oral, Fri//, 0 Refill(s) Start Date: 12/05/14 Status: Ordered Fish Oil 1000 mg oral capsule 1,000 mg 1 caps, Oral, Daily, 0 Refill(s) Start Date: 06/20/15 Status: Ordered fluticasone 50 mcg/inh nasal spray 2 sprays, Nasal, BID, 0 Refill(s) Start Date: 12/05/14 Status: Ordered furosemide 40 mg oral tablet 1 tabs, Oral, Daily, 0 Refill(s) Start Date: 12/05/14 Status: Ordered HumaLOG 100 units/mL subcutaneous solution 30 units, SubCutaneous, TIDWM, 0 Refill(s) Start Date: 12/17/14 Status: Ordered labetalol 100 mg oral tablet 100 mg 1 tabs, Oral, BID, # 60 tabs, 0 Refill(s) Start Date: 06/20/15 Status: Ordered Lantus 80 units, SubCutaneous, Bedtime (once a day), 0 Refill(s) Start Date: 12/16/14 Status: Ordered Lantus 50 units, SubCutaneous, qAM, 0 Refill(s) Start Date: 12/16/14 Status: Ordered levETIRAcetam 250 mg oral tablet 1 tabs, Oral, BID, 0 Refill(s) Start Date: 12/05/14 Status: Ordered levothyroxine 50 mcg, Oral, Daily, 0 Refill(s) Start Date: 12/05/14 Status: Ordered Lopressor 12.5 mg 0.5 tabs, Oral, BID, 0 Refill(s) Start Date: 12/17/14 Status: Ordered LORazepam 1 mg, Oral, TID, as needed for anxiety, 0 Refill(s) Start Date: 12/05/14 Status: Ordered losartan-hydrochlorothiazide 100 mg-12.5 mg oral tablet 1 tabs, Oral, Daily, 0 Refill(s) Start Date: 12/05/14 Status: Ordered losartan-hydrochlorothiazide 50 mg-12.5 mg oral tablet 1 tabs, Oral, Daily, # 30 tabs, 0 Refill(s) Start Date: 06/20/15 Status: Ordered metoclopramide 10 mg oral tablet 10 mg 1 tabs, Oral, TID, 0 Refill(s) Start Date: 06/20/15 Status: Ordered metoclopramide 5 mg oral tablet 1 tabs, Oral, TID, 30 minutes before meals, 0 Refill(s) Start Date: 12/05/14 Status: Ordered nitroglycerin 0.4 mg sublingual tablet 0.4 mg 1 tabs, SubLingual, q5min, Angina/Chest Pain, 0 Refill(s) Start Date: 12/17/14 Status: Ordered NovoLOG FlexPen See Instructions, 5x3mL SubCutaneous TIDAC, 0 Refill(s) Start Date: 06/20/15 Status: Ordered oxyCODONE-acetaminophen 7.5 mg-325 mg oral tablet 2 tabs, Oral, q4hr, Pain Moderate (4-6), 0 Refill(s) Start Date: 12/17/14 Status: Ordered potassium chloride 10 mEq oral tablet, extended release 1 tabs, Oral, Daily, 0 Refill(s) Start Date: 12/05/14 Status: Ordered primidone 250 mg, Oral, BID, 0 Refill(s) Start Date: 12/05/14 Status: Ordered primidone 50 mg oral tablet 100 mg 2 tabs, Oral, TID, # 180 tabs, 0 Refill(s) Start Date: 06/20/15 Status: Ordered propranolol 60 mg oral capsule, extended release 1 caps, Oral, Daily, 0 Refill(s) Start Date: 12/05/14 Status: Ordered tamsulosin 0.4 mg, Oral, Daily, [...] 0 Refill(s) Start Date: 06/20/15 Status: Ordered zolpidem 10 mg oral tablet 1 tabs, Oral, Bedtime (once a day), as needed for sleep, 0 Refill(s) Start Date: 12/05/14 Status: Ordered Results Blood Gases Most recent to 1 2 oldest [Reference Range]: pH [7.35-7.45] 7.39 (12/13/14 4:10 AM) PCO2 Arterial POC 48 mmHg [35-45 mmHg] *HI* (12/12/14 10:35 AM) pCO2 Art [35-45 38 mmHg mmHg] (12/13/14 4:10 AM) CO2 Totl Art [23-27 28 mEq/L mEq/L] *HI* (12/12/14 10:35 AM) Arterial PO2 [80-100 68 mmHg mmHg] *LOW* (12/13/14 4:10 AM) Bicarbonate [22-26 22 mEq/L mEq/L] (12/13/14 4:10 AM) Bicarbonate Arterial 26 mEq/L POC [22-26 mEq/L] (12/12/14 10:35 AM) Base Excess Arterial 1 POC [0-2] (12/12/14 10:35 AM) Base Excess Art -2 [0-2] *LOW* (12/13/14 4:10 AM) pO2 Art [90.0-97.0 92.8 % %] (12/13/14 4:10 AM) O2 Saturation 99.0 % Arterial POC *HI* [90.0-97.0 %] (12/12/14 10:35 AM) pH Arterial POC 7.35 [7.35-7.45] (12/12/14 10:35 AM) PO2 Arterial POC 161 mmHg [80-100 mmHg] *HI* (12/12/14 10:35 AM) O2 Panel Room Air (12/13/14 4:10 AM) Vent Mode AC (12/12/14 12:25 PM) Set Vt 600 mL (5/18/15 12:25 PM) Set Rate 12 br/min (12/12/14 12:25 PM) FiO2 Art [0-100] 40 (12/12/14 4:10 PM) PEEP 5.0 (12/12/14 4:10 PM) Inspiratory Time Art 0.90 (12/12/14 12:25 PM) Tubing Compensation 100 % (12/12/14 4:10 PM) Total Rate 17 br/min (12/12/14 4:10 PM) Spon Vt 460 mL (12/12/14 4:10 PM) Spec Site A-Line (12/13/14 4:10 AM) Hematology Most recent to 1 2 oldest [Reference Range]: WBC [4.8-10.8 8.1 10*3/uL 10*3/uL] (12/15/14 10:14 AM) RBC [4.60-6.20 2.93 10*6/uL 10*6/uL] *LOW* (12/15/14 10:14 AM) Hgb [14.0-18.0 8.9 gm/dL gm/dL] *LOW* (12/15/14 10:14 AM) Hct [42.0-52.0 %] 26.9 % *LOW* (12/15/14 10:14 AM) MCV [82.0-99.0 fL] 91.8 fL (12/15/14 10:14 AM) MCH [27.0-32.0 pg] 30.4 pg (12/15/14 10:14 AM) MCHC [32.0-36.0 33.1 gm/dL gm/dL] (12/15/14 10:14 AM) RDW [11.5-14.5 %] 14.8 % *HI* (12/15/14 10:14 AM) Platelet [150-400 301 10*3/uL 10*3/uL] (12/15/14 10:14 AM) MPV [9.4-12.3 fL] 9.3 fL *LOW* (12/15/14 10:14 AM) Immature 0.3 % Granulocytes (12/11/14 5:22 AM) [0.0-1.0 %] Neutrophils [51-75 87 % %] *HI* (12/13/14 3:22 AM) Band Man [0-8 %] 7 % (12/13/14 3:22 AM) Lymphocytes [20-46 3 % %] *LOW* (12/13/14 3:22 AM) Monocytes [4-11 %] 4 % (12/13/14 3:22 AM) Eosinophils [0-4 %] 0 % (12/13/14 3:22 AM) Basophils [0-2 %] 0 % (12/13/14 3:22 AM) Neutro Absolute 8.93 10*3 [1.90-7.00 10*3] *HI* (12/13/14 3:22 AM) Lymph Absolute 0.29 10*3 [0.80-3.30 10*3] *LOW* (12/13/14 3:22 AM) [place] Absolute 0.38 10*3 [0.30-1.00 10*3] (12/13/14 3:22 AM) Eos Absolute 0.00 10*3 [0.00-0.50 10*3] (12/13/14 3:22 AM) Baso Absolute 0.01 10*3 [0.00-0.20 10*3] (12/13/14 3:22 AM) Nucleated RBC 0.0 /100 WBC Automated [0 /100 (12/13/14 3:22 AM) WBC] Differential Reviewed (12/13/14 3:22 AM) Coagulation Most recent to 1 2 oldest [Reference Range]: INR [0.9-1.2] 1.3 *HI* (12/12/14 10:30 AM) PTT [25.0-35.0] 29.3 (12/12/14 10:30 AM) Fibrinogen Lvl 220 mg/dL [187-520 mg/dL] (12/12/14 10:30 AM) P2Y12 Reaction Units 239.0 1 (12/10/14 6:37 AM) Thrombelastograph See Scan (12/12/14 10:30 AM) 1Result Comment: Pre-Drug PRU reference is 194-418. PRU levels lower than 194 are associated with expected antiplatelet effect. The performance characteristics of the P2Y12 inhibition test has been established for Clopidogrel, Prasugrel, and Ticagrelor. Expected values may be used for these drugs. Chemistry Most recent to 1 2 oldest [Reference Range]: Sodium Lvl [136-144 128 mEq/L mEq/L] *LOW* (12/16/14 9:36 AM) Potassium Lvl 4.0 mEq/L 1 [3.6-5.1 mEq/L] (12/16/14 9:36 AM) Chloride [99-109 95 mEq/L mEq/L] *LOW* (12/16/14 9:36 AM) CO2 [22-32 mEq/L] 23 mEq/L (12/16/14 9:36 AM) AGAP [3-20] 10 (12/16/14 9:36 AM) BUN [4-20 mg/dL] 32 mg/dL *HI* (12/16/14 9:36 AM) Glucose Lvl [70-100 276 mg/dL mg/dL] *HI* (12/16/14 9:36 AM) Creatinine Lvl 1.48 mg/dL [0.64-1.27 mg/dL] *HI* (12/16/14 9:36 AM) eGFR [>60] 47 2 *ABN* (12/16/14 9:36 AM) Calcium Lvl 8.4 mg/dL [8.6-10.0 mg/dL] *LOW* (12/16/14 9:36 AM) Albumin Lvl [3.5-4.8 3.4 gm/dL gm/dL] *LOW* (12/06/14 4:07 AM) Total Protein 7.0 gm/dL [6.1-7.9 gm/dL] (12/06/14 4:07 AM) Globulin [1.9-4.3 3.6 gm/dL gm/dL] (12/06/14 4:07 AM) ALT [17-63 U/L] 59 U/L (12/06/14 4:07 AM) AST [15-41 U/L] 53 U/L *HI* (12/06/14 4:07 AM) Alk Phos [26-104 68 U/L U/L] (12/06/14 4:07 AM) Bili Total [0.2-1.2 0.5 mg/dL 3 mg/dL] (12/06/14 4:07 AM) Magnesium Lvl 2.5 mg/dL [1.8-2.5 mg/dL] (12/14/14 3:21 AM) Calcium Ionized 1.20 mmol/L [1.19-1.41 mmol/L] (12/14/14 3:21 AM) Prealbumin [18-38 29 mg/dL mg/dL] (12/11/14 5:22 AM) Sodium Arterial NPT 139 mEq/L [136-144 mEq/L] (12/12/14 10:35 AM) Potassium Arterial 5.1 mEq/L 4 NPT [3.6-5.1 mEq/L] (12/12/14 10:35 AM) Calcium Ionized 1.04 mmol/L Arterial NPT *LOW* [1.19-1.41 mmol/L] (12/12/14 10:35 AM) HCT Arterial NPT 26.0 % (12/12/14 10:35 AM) HGB Arterial NPT 8.8 gm/dL (12/12/14 10:35 AM) Arterial Glucose NPT 117 mg/dL [70-100 mg/dL] *HI* (12/12/14 10:35 AM) Activated Clotting 116 Time NPT [100-146] (12/12/14 10:35 AM) Blood Glucose, 200 mg/dL 200 mg/dL Capillary [74-106 *HI* *HI* mg/dL] (12/17/14 1:39 PM) (12/17/14 1:39 PM) Blood Glucose, Low Capillary Out of (12/10/14 5:00 PM) Range Chol [0-200 mg/dL] 206 mg/dL *HI* (12/06/14 4:07 AM) Trig [0-150 mg/dL] 418 mg/dL *HI* (12/06/14 4:07 AM) HDL [>40 mg/dL] 34 mg/dL *ABN* (12/06/14 4:07 AM) LDL [0-100] INVALID 5 (12/06/14 4:07 AM) VLDL Cholesterol INVALID [0-30] (12/06/14 4:07 AM) Cardiac Risk 6.1 [0.0-5.7] *HI* (12/06/14 4:07 AM) Hgb A1c [4.1-5.6 %] 8.4 % *HI* (12/06/14 4:07 AM) eAvg Glucose 194.4 mg/dL (12/06/14 4:07 AM) 1Result Comment: Hemolyzed specimen. The following test may be affected: Potassium. 2Result Comment: Multiply eGFR results by 1.21 for race. 3Result Comment: Naproxen, specifically the metabolite O-desmethylnaproxen, may cause spurious elevation in Total Bilirubin levels. 4Result Comment: This test was performed on a whole blood specimen. The presence or absence of hemolysis cannot be assessed. Hemolysis can falsely elevate potassium levels. Normals are for venous specimens only. 5Result Comment: LDL and VLDL are invalid with Triglyceride greater than 400. Urinalysis Most recent to 1 2 oldest [Reference Range]: UA Color Lt Yellow (12/11/14 2:21 AM) UA Appear Clear (12/11/14 2:21 AM) UA pH [5.0-8.0] 5.0 (12/11/14 2:21 AM) UA Leuk Est Negative [Negative] (12/11/14 2:21 AM) UA Nitrite Negative [Negative] (12/11/14 2:21 AM) UA Protein Negative [Negative] (12/11/14 2:21 AM) UA Glucose Negative [Negative] (12/11/14 2:21 AM) UA Ketones Negative [Negative] (12/11/14 2:21 AM) UA Urobilinogen Negative [<1.0] (12/11/14 2:21 AM) UA Bili [Negative] Negative (12/11/14 2:21 AM) UA Blood [Negative] Negative (12/11/14 2:21 AM) UA Spec Grav 1.009 [1.003-1.030] (12/11/14 2:21 AM) Type Clean Catch (12/11/14 2:21 AM) Blood Bank Results Most recent to 1 2 oldest [Reference Range]: ABO/Rh O POS (12/11/14 5:22 AM) Antibody Screen Tube NEG (12/11/14 5:22 AM) Microbiology Reports TEST: MRSA Screen Culture STATUS: Auth (Verified) BODY SITE: SOURCE: Nares COLLECTED DATE/TIME: 12/11/14 2:22 AM MRSA Screen Culture No Methicillin Resistant Staphylococcus aureus isolated. Immunizations Vaccine Date Refusal Reason tetanus-diphth toxoids (Td) adult/adol 02/09/02 Procedures Procedure Date Related Diagnosis Body Site Colonoscopy 06/08/15 Bypass Graft Coronary Artery1 12/12/14 [place] [facility] Endoscopic (Left)2 12/12/14 Hernia repair 2011 Hernia 1971 Hernia 1969 Tonsillectomy and adenoidectomy 194 1auto-populated from documented surgical case 2auto-populated from documented surgical case Social History Social History Type Response Smoking Status Former smoker Assessment and Plan No data available for this section
--- OUTSIDE RECORDS SUMMARY | 2016-12-11 09:40 | XMS REPORT | Referral Summary ---
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 Discharge Disposition: 01-Home or Self Care Attending Physician: Fernando Leos MD Admitting Physician: Fernando Leos MD Referring Physician: Sesar Prabhakar MD Vital Signs Most recent to 1 oldest [Reference Range]: Temperature Tympanic 37 degC [36.6-38.1 degC] (06/20/15 2:19 PM) Blood Pressure 122/68 mmHg [90-140/60-90 mmHg] (06/20/15 2:19 PM) Problem List Condition Effective Dates Status Health Status Informant Acute Active pain(Confirmed) Allergies(Confirmed) Active Anxiety(Confirmed) Active patient At risk of pressure Active sore(Confirmed) Depression(Confirmed Active patient ) High Active cholesterol(Confirme d) Hypertension(Confirm Active patient ed) Impaired skin Active integrity(Confirmed) 1 Obesity(Confirmed) Active patient Tissue perfusion Active alteration(Confirmed )2 Tobacco Resolved [...] Refill(s) Start Date: 12/05/14 Status: Ordered Results No data available for this section Immunizations Vaccine Date Refusal Reason tetanus-diphth toxoids (Td) adult/adol 02/09/02 Procedures Procedure Date Related Diagnosis Body Site Colonoscopy 06/08/15 Bypass Graft Coronary Artery1 12/12/14 [place] [facility] Endoscopic (Left)2 12/12/14 Hernia repair 2010 Hernia 1971 Hernia 1969 Tonsillectomy and adenoidectomy 194 1auto-populated from documented surgical case 2auto-populated from documented surgical case Social History Social History Type Response Smoking Status Former smoker Assessment and Plan No data available for this section
--- OUTSIDE RECORDS SUMMARY | 2016-12-11 09:40 | XMS REPORT | Referral Summary ---
Author Author [facility] Organization [facility] Address Unknown Phone Unavailable Care Team Providers Care Irrigation System Operator Name Role Phone VannaPablo Primary Care Physician [phone] Encounter [facility] [id number] Date(s): 08/17/15 - 08/17/15 [facility] [address] [place] [address] Discharge Disposition: -Home or Self Care Attending Physician: Edy Rutherford MD Admitting Physician: Edy Rutherford MD Vital Signs Most recent to 1 oldest [Reference Range]: Temperature Skin 36.4 degC [36-37 degC] (08/17/15 1:05 PM) Peripheral Pulse 79 bpm Rate [60-100 bpm] (08/17/15 7:39 AM) Heart Rate Monitored 88 bpm [60-100 bpm] (08/17/15 1:05 PM) Respiratory Rate 20 br/min [14-20 br/min] (08/17/15 1:05 PM) Blood Pressure 124/64 mmHg [90-140/60-90 mmHg] (08/17/15 1:05 PM) Mean Arterial 90 mmHg Pressure, Cuff (08/17/15 11:45 AM) SpO2 93 % (08/17/15 12:20 PM) Problem List Condition Effective Dates Status [...] 0 Refill(s) Start Date: 06/20/15 Status: Ordered DSS 100 mg oral capsule [...] 0 Refill(s) Start Date: 12/17/14 Status: Ordered [place] 5 mg-325 mg oral tablet 1-2 tabs, Oral, q4hr, Pain Moderate (4-6), 0 Refill(s) Start Date: 08/17/15 Status: Ordered NovoLOG FlexPen See Instructions, 25,23.25 SubCutaneous TIDAC, 0 Refill(s) Start Date: 06/20/15 Status: Ordered potassium chloride 10 mEq oral [...] Refill(s) Start Date: 12/05/14 Status: Ordered Results Hematology Most recent to 1 oldest [Reference Range]: WBC [4.8-10.8 9.2 10*3/uL 10*3/uL] (08/17/15 7:34 AM) RBC [4.60-6.20] 4.02 *LOW* (08/17/15 7:34 AM) Hgb [14.0-18.0 12.6 gm/dL gm/dL] *LOW* (08/17/15 7:34 AM) Hct [42.0-52.0 %] 37.9 % *LOW* (08/17/15 7:34 AM) MCV [82.0-99.0 fL] 94.3 fL (08/17/15 7:34 AM) MCH [27.0-32.0 pg] 31.3 pg (08/17/15 7:34 AM) MCHC [32.0-36.0 33.2 gm/dL gm/dL] (08/17/15 7:34 AM) RDW [11.5-14.5 %] 13.9 % (08/17/15 7:34 AM) Platelet [150-400 307 10*3/uL 10*3/uL] (08/17/15 7:34 AM) MPV [9.4-12.3 fL] 9.2 fL *LOW* (08/17/15 7:34 AM) Chemistry Most recent to 1 oldest [Reference Range]: Sodium Lvl [136-144 138 mEq/L mEq/L] (08/17/15 7:34 AM) Potassium Lvl 3.8 mEq/L [3.6-5.1 mEq/L] (08/17/15 7:34 AM) Chloride [99-109 100 mEq/L mEq/L] (08/17/15 7:34 AM) CO2 [22-32 mEq/L] 24 mEq/L (08/17/15 7:34 AM) AGAP [3-20] 14 (08/17/15 7:34 AM) BUN [4-20 mg/dL] 17 mg/dL (08/17/15 7:34 AM) Glucose Lvl [70-100 138 mg/dL mg/dL] *HI* (08/17/15 7:34 AM) Creatinine Lvl 1.81 mg/dL [0.64-1.27 mg/dL] *HI* (08/17/15 7:34 AM) eGFR [>60] 37 1 *ABN* (08/17/15 7:34 AM) Calcium Lvl 9.7 mg/dL [8.6-10.0 mg/dL] (08/17/15 7:34 AM) Blood Glucose, 129 mg/dL Capillary [70-100 *HI* mg/dL] (08/17/15 10:49 AM) 1Result Comment: Multiply eGFR results by 1.21 for race. Immunizations Vaccine Date Refusal Reason tetanus-diphth toxoids (Td) adult/adol 02/09/02 Procedures Procedure Date Related Diagnosis Body Site Endoscopy Microsurgery Transanal1 08/17/15 Colonoscopy 06/08/15 Bypass Graft Coronary Artery2 12/12/14 [place] [facility] Endoscopic (Left)3 12/12/14 Hernia repair4 2010 Hernia 1971 Hernia 1969 Tonsillectomy and adenoidectomy 194 REPLACE EAR DRUM - LEFT 1auto-populated from documented surgical case 2auto-populated from documented surgical case 3auto-populated from documented surgical case 4X 3 Social History Social History Type Response Smoking Status Former smoker Assessment and Plan No data available for this section
--- OUTSIDE RECORDS SUMMARY | 2016-12-11 09:40 | XMS REPORT | Continuity of Care Document ---
Author Author [facility] Organization [facility] Address Unknown Phone Unavailable Support Name Relationship Address Phone FLOYD RAGLAND MD Caregiver [address] [place] [address] Unavailable EMILIA AMAYA MD Caregiver [address] [place] [address] Unavailable TG NELSON Next Of Kin [address] [place] [address] [phone] c Insurance Providers Guarantor Maciel Be Address [address] [place] [address] C Email DENIED/NO TO PT PORTAL Payer Medicare Policy Number [id number] Subscriber's Name Maciel Be Relationship 18 Self Effective Date 08 Payer Other A Insurance Policy Number [id number] Subscriber's Name Maciel Be Relationship 18 Self Group Number [id number] Advance Directives Directive Response Recorded Date/Time Ordered Resuscitation Status Full Code 02/12/16 3:22pm Resuscitation Documents on File No 02/14/16 9:07am DPOA for Healthcare Only No 02/14/16 9:07am Problems Active Problems Medical Problem Onset Date Status Burn of hand, right Unknown Acute Medications Current Home Medications Medication Dose Units Route Directions Days Qty Instructions Start Date Allopurinol 300 Mg Tablet 1 Tab Oral Daily 12/05/14 Aspirin (Aspir 81) 81 Mg Tablet. 1 Tab Oral Daily 12/05/14 Cetirizine Hcl 10 Mg Tablet 1 Tab Oral Twice A Day 12/05/14 Citalopram Hydrobromide (Celexa) 10 Mg Tablet 10 Mg Oral Daily Clopidogrel Bisulfate (Clopidogrel) 75 Mg Tablet 1 Tab Oral Daily 01/26/15 Docusate Sodium (Stool Softener) 100 Mg Capsule 2 Cap Oral Bedtime 02/12/16 Ezetimibe (Zetia) 10 Mg Tablet 1 Tab Oral Daily 02/12/16 Fenofibrate,Micronized (Fenofibrate) 160 Mg Tablet 160 Mg Oral Daily 07/09/12 Ferrous Sulfate 1 Tab Tablet 1 Tab Oral Daily 05/07/13 Fish Oil/[place]-3 Fatty Acids (Fish Oil 1,000 Mg Capsule) 1 Cap Capsule 1 Cap Oral Daily 11/29/09 Fluticasone Propionate (Flonase) 16 Gm [place].susp 2 [place] Each Nostril Twice A Day 11/29/09 Furosemide (Lasix) 40 Mg Tablet 1 Tab Oral Daily 01/02/11 Hydrocodone/Acetaminophen ([place] 5-325 Tablet) 5-325 Tablet 1-2 Tab Oral Every 4 Hours Prn as needed for Pain 60 Tablet 02/14/16 Insulin Aspart (Novolog Flexpen) 1 Unit Pen 25 Unit Sub-Q Give With Breakfast 12/05/14 Insulin Aspart (Novolog) 100 Unit/Ml Inj 23 Unit Sub-Q Give With Lunch 02/12/16 Insulin Aspart (Novolog) 100 Unit/Ml Inj 25 Unit Sub-Q Give With Supper 02/12/16 Insulin Glargine (Lantus) 100 U/Ml Vial 70 U Sub-Q Bedtime Insulin Glargine,Hum.rec.anlog (Lantus) 100 Unit/Ml Inj 45 Unit Sub-Q Daily Morning Insulin 02/12/16 Labetalol Hcl 100 Mg Tablet 1 Tab Oral Twice A Day 12/05/14 Levothyroxine Sodium 50 Mcg Tablet 1 Tab Oral Daily 11/29/09 Lorazepam 1 Mg Tablet 1 Tab Oral As Needed 02/12/16 Metoclopramide Hcl 5 Mg Tablet 5 Mg Oral Before Meals And At Bedtime Take 1 tablet, by mouth, 4 times a day (with meals and at bedtime). 02/12/16 Multivitamins W-Minerals/Lut (Centrum Silver Tablet) 1 Tab Tablet 1 Tab Oral Daily 05/07/13 Ondansetron Hcl (Zofran) 4 Mg Tablet 4 Mg Oral Every 6 Hours for Nausea 10 Tablet 02/14/16 Potassium Chloride (Klor-Con 10) 10 Meq Tablet.sa 1 Tab Oral Daily 01/02/11 Primidone 50 Mg Tablet 50 Mg Oral Three Times A Day Take 1 tablet, by mouth, 3 times a day. 02/12/16 Propranolol Hcl 60 Mg Cap.sa.24h 1 Cap Oral Daily 12/05/14 Rosuvastatin Calcium (Crestor) 10 Mg Tablet 10 Mg Oral Daily Take 1 tablet, by mouth, one time a day at bedtime. 02/12/16 Tamsulosin Hcl (Flomax) 0.4 Mg Cap.sr.24h 0.4 Mg Oral Daily 01/02 Temazepam 15 Mg Capsule 1 Tab Oral Bedtime 01/26/15 Timolol Maleate (Timolol Maleate 0.5%) 15 Ml Drops 1 Drop Both Eyes Twice A Day 07/09/13 Past Home Medications Medication Directions Ordered Status Acetaminophen 500 Mg Tablet, 1000 Mg Oral Every 6 Hours as needed for Pain Discontinued Aspirin 325 Mg Tablet.dr, 325 Mg Oral Daily 07/09/13 Discontinued Calcium Carbonate (Calcium) 600 Mg Tablet, 600 Mg Oral Twice A Day 11/29/09 Discontinued Carvedilol (Coreg) 3.125 Mg Tablet, 3.125 Mg Oral Daily 11/29/09 Discontinued Carvedilol (Coreg) 3.125 Mg Tablet, 3.125 Mg Oral Daily 11/28/09 Discontinued Clonazepam 1 Mg Tablet, 1 Mg Oral Bedtime 11/29/09 Discontinued Clopidogrel Bisulfate (Plavix) 75 Mg Tablet, 75 Mg Oral Daily 07/09/13 Discontinued Ezetimibe (Zetia) 10 Mg Tablet, 10 Mg Oral Daily 11/29/09 Discontinued Fenofibrate Nanocrystallized (Tricor) 145 Mg Tablet, 145 Mg Oral Daily Discontinued Fexofenadine Hcl (Kerline) 180 Mg Tablet, 180 Mg Oral Daily 11/29/09 Discontinued Insulin Aspart (Novolog) 100 U/Ml Vial, U Sub-Q As Directed 05/10/13 Discontinued Insulin Aspart (Novolog) 100 U/Ml Insuln.pen, 100 U Sub-Q 20U Bid,15U At Noon 11/29/09 Discontinued Lisinopril/Hydrochlorothiazide (Lisinopril-Hctz 20-12.5 Tab) 1 Tab Tablet, 1 Tab Oral Twice A Day 11/29/09 Discontinued Lorazepam (Ativan) 1 Mg Tablet, 1 Mg Oral Twice A Day 11/29/09 Discontinued Metaxalone (Skelaxin) 800 Mg Tablet, 800 Mg Oral Tid Prn 11/29/09 Discontinued Nefazodone Hcl 200 Mg Tablet, 200 Mg Oral 1 In Am, 2 At Hs 11/29/09 Discontinued Potassium Chloride (K-Tab) 10 Meq Tablet.sa, 10 Meq Oral Daily 11/28/09 Discontinued Pravastatin Sodium 20 Mg Tablet, 20 Mg Oral Daily 05/07/13 Discontinued Primidone 250 Mg Tablet, 2 Tab Oral Twice A Day 12/05/14 Discontinued Rosuvastatin Calcium (Crestor) 40 Mg Tablet, 40 Mg Oral Daily 11/29/09 Discontinued Topiramate 25 Mg Tablet, 25 Mg Oral Twice A Day 08/02/13 Discontinued Social History Social History Problem Response Recorded Date/Time Onset Date Status Chewing Tobacco Status No 08/02/2013 12:38pm Not Applicable Not Applicable Hx Substance Use No 02/13/2016 10:50am Not Applicable Not Applicable Hx Alcohol Use No 02/14/2016 10:22am Not Applicable Not Applicable Has the pt used tobacco in the last 12 months No 02/13/2016 10:50am Not Applicable Not Applicable Query Response Start Date Stop Date Smoking Status Never smoker Hospital Discharge Instructions Instructions: Care Instructions: Reason for Hospitalization: Left knee arthroscopy PMM, PLM I was in the hospital because (patient own words): LEFT KNEE ARTHROSCOPY AND MENISCUS RPAIR Discharge Diet: regular Discharge Activity: WBAT Follow Up Appointments: FEBRUARY 21 AT 0830 Pending Lab / Results: No Pending Lab Condition at time of discharge: Good Plan of Care Discharge Date 02/14/16 1:00pm Instructions/Education Provided [facility] Knee Scope Prescriptions See Medication Section Functional Status Query Response Date Recorded Ability to complete ADL's impeded by No change February 14, 2016 9:07am Allergies, Adverse Reactions, Alerts No known allergies. Immunizations Query Response on File Recorded Date/Time Hx Influenza Vaccination Y APR 2015 02/13/16 10:50am Hx Pneumococcal Vaccination Y UNKNOWN DATE 02/13/16 10:50am Hx Influenza Vaccination Y APR 2015 02/13/16 10:50am Hx Tetanus Diptheria Y 4-5 YRS AGO 01/26/15 10:25am Vital Signs Acute Vital Signs Vital Response Date/Time Temperature (Fahrenheit) 98.6 deg F (96.8 - 99.1) 02/14/2016 11:11am Temperature (Calculated Celsius) 37.50285 degrees C (36.0 - 37.3) 02/14/2016 11:11am Temperature Source Temporal 02/14/2016 11:11am Pulse Rate (adult) 71 bpm (60 - 100) 02/14/2016 12:30pm Respiratory Rate 12 breaths/min (10 - 20) 02/14/2016 12:30pm O2 Sat by Pulse Oximetry 94 % (90 - 100) 02/14/2016 12:30pm Oxygen Delivery Method Room Air 02/14/2016 12:30pm Blood Pressure 156/69 mm Hg 02/14/2016 12:30pm Blood Pressure Source Automatic Cuff 02/14/2016 12:30pm Height (Feet) 5 feet 02/14/2016 9:00am Height (Inches) 10.00 inches 02/14/2016 9:00am Weight (Kilograms) 117.700 kg 02/14/2016 9:00am Body Mass Index (BMI) 37.2 02/14/2016 9:00am Results Laboratory Results Test Name Result Units Flags Reference Collection Date/Time Result Date/ Time Comments White Blood Count 4.5 T/MM3 4.5-11.0 02/14/2016 9:02/14/2016 9: 59am Red Blood Count 3.92 M/MM3 L 4.50-5.90 02/14/2016 9:02/14/2016 9: 59am Hemoglobin 12.2 GM/DL L 13.5-17.5 02/14/2016 9:02/14/2016 9:59am Hematocrit 37.6 % L 41-53 02/14/2016 9:02/14/2016 9:59am Mean Corpuscular Volume 95.9 UM3 80-100 02/14/2016 9:02/14/2016 9: 59am Mean Corpuscular Hemoglobin 31.1 UUG 26-34 02/14/2016 9:2015 9:59am Mean Corpuscular Hemoglobin Concent 32.4 GM/DL 31-37 02/14/2016 9:02/14/2016 9:59am RDW Standard Deviation 51.4 FL H 36.9-50.2 02/14/2016 9:02/14/2016 9:59am Platelet Count 295 T/MM3 130-400 02/14/2016 9:02/14/2016 9:59am Mean Platelet Volume 9.2 UM3 L 9.4-12.4 02/14/2016 9:02/14/2016 9: 59am Neutrophils (%) (Auto) 62.5 % 33-66 02/14/2016 9:02/14/2016 9: 59am Lymphocytes (%) (Auto) 20.5 % L 23-45 02/14/2016 9:02/14/2016 9: 59am Monocytes (%) (Auto) 10.8 % H 0-9.0 02/14/2016 9:02/14/2016 9:59am Eosinophils (%) (Auto) 4.9 % H 0-4 02/14/2016 9:02/14/2016 9:59am Basophils (%) (Auto) 1.1 % 0-2 02/14/2016 9:02/14/2016 9:59am Immature Granulocyte % (Auto) 0.2 % 0.0-0.5 02/14/2016 9:2015 9:59am Absolute Neutrophils (auto) 2.8 T/MM3 1.8-7.7 02/14/2016 9:2015 9:59am Absolute Lymphocytes (auto) 0.9 T/MM3 L 1-4.8 02/14/2016 9:2015 9:59am Absolute Monocytes (auto) 0.5 T/MM3 0-0.8 02/14/2016 9:02/14/2016 9:59am Absolute Eosinophils (auto) 0.2 T/MM3 0-0.5 02/14/2016 9:2015 9:59am Absolute Basophils (auto) 0.1 T/MM3 0-0.2 02/14/2016 9:02/14/2016 9:59am Absolute Immature Granulocyte (auto 0.01 T/MM3 0.00-0.03 02/14/2016 9: 02/14/2016 9:59am Icterus Index < 2 0-7 02/14/2016 9:02/14/2016 9:48am Chemistry Specimen Hemolysis < 15 0-25 02/14/2016 9:02/14/2016 9 :48am 0-25: Specimen Exhibited No Hemolysis. Turbidity < 20 0-20 02/14/2016 9:02/14/2016 9:48am Sodium Level 146 MEQ/L H 134-144 02/14/2016 9:02/14/2016 9:48am Potassium Level 4.4 MEQ/L 3.6-5 02/14/2016 9:02/14/2016 9:48am Chloride Level 108 MEQ/L H 98-107 02/14/2016 9:02/14/2016 9:48am Carbon Dioxide Level 22 MEQ/L 22-30 02/14/2016 9:02/14/2016 9: 48am Anion Gap 16 MEQ/L H 5-15 02/14/2016 9:02/14/2016 9:48am Blood Urea Nitrogen 15.0 MG/DL 04-1602/14/2016 9:02/14/2016 9: 48am Creatinine 1.1 MG/DL 0.8-1.5 02/14/2016 9:02/14/2016 9:48am BUN/Creatinine Ratio 14 RATIO 01-2002/14/2016 9:02/14/2016 9:48am Glomerular Filtration Rate Calc 66 02/14/2016 9:02/14/2016 9: 48am Glucose Level 146 MG/DL H 75-110 02/14/2016 9:02/14/2016 9:48am Calculated Osmolality 285 MOSM/KG H 261-280 02/14/2016 9:2015 9:48am Calcium Level 9.2 MG/DL 8.4-10.2 02/14/2016 9:02/14/2016 9:48am Total Bilirubin 0.40 MG/DL 0.20-1.30 02/14/2016 9:02/14/2016 9: 48am Alkaline Phosphatase 72 U/L 38-126 02/14/2016 9:02/14/2016 9:48am Total Protein 7.4 G/DL 6.3-8.2 02/14/2016 9:02/14/2016 9:48am Albumin 4.2 G/DL 3.5-5.0 02/14/2016 9:02/14/2016 9:48am Globulin 3.2 G/DL 2.4-3.6 02/14/2016 9:02/14/2016 9:48am Albumin/Globulin Ratio 1.3 RATIO 1.1-2.2 02/14/2016 9:26am 02/14/2016 9 :48am Aspartate Amino Transf (AST/SGOT) 75 U/L H 17-59 02/14/2016 9:26am 02/13 9:48am Alanine Aminotransferase (ALT/SGPT) 50 U/L 21-72 02/14/2016 9:26am 9:48am Procedures Procedure Status Date Provider(s) X-RAY EXAM OF KNEE 3 Completed 12/01/15 MRI JNT OF LWR EXTRE W/O DYE Completed 01/05/16 Knee arthroscopy, left Completed 02/14/16 EMILIA AMAYA MD Encounters Encounter Location Arrival/Admit Date Discharge/Depart Date Attending Provider Departed [facility] 02/14/16 8:44am 02/14/16 1: 00pm EMILIA AMAYA MD Registered [facility] 01/05/16 6:18am FLOYD RAGLAND MD Registered [facility] 12/01/15 2:52pm FLOYD RAGLAND MD
--- OUTSIDE RECORDS SUMMARY | 2016-12-11 09:40 | XMS REPORT | Referral Summary ---
Author Author [facility] Organization [facility] Address Unknown Phone Unavailable Care Team Providers Care Diesel Mechanic Apprentice Name Role Phone Pablo Prabhakar Primary Care Physician [phone] Encounter [facility] [id number] Date(s): 06/27/15 - 06/27/15 [facility] [address] [place], [place] [address] Discharge Diagnosis: Adenomatous rectal polyp Discharge Disposition: 01-Home or Self Care Attending Physician: Edy Rutherford MD Admitting Physician: Edy Rutherford MD Referring Physician: Fernando Leos MD Vital Signs Most recent to 1 oldest [Reference Range]: Blood Pressure 132/76 mmHg [90-140/60-90 mmHg] (06/27/15 11:33 AM) Problem List Condition Effective Dates Status [...] Procedures Procedure Date Related Diagnosis Body Site Sigmoidoscopy, flexible; diagnostic, 06/27/15 including collection of specimen(s) by brushing or washing, when performed (separate procedure) Colonoscopy 06/08/15 Bypass Graft Coronary Artery1 12/12/14 [place] [facility] Endoscopic (Left)2 12/12/14 Hernia repair 2010 Hernia 1971 Hernia 1969 Tonsillectomy and adenoidectomy 194 1auto-populated from documented surgical case 2auto-populated from documented surgical case Social History Social History Type Response Smoking Status Former smoker Assessment and Plan Extracted from: Title: Office Visit Note Author: Edy Rutherford MD Date: 06/27/15 Assessment/Plan Adenomatous rectal polyp This polyp is amenable to a TEMS excision. This we be a full-thickness excision of the polypectomy base. Risks and benefits of this were reviewed. We'll plan this at [place]. Very likely be able to go home the same day. All of his questions were answered. Ordered: Office Visit Level 4 New [id number] sigmoidoscopy flx dx w/wo collj specimens [id number] Extracted from: Title: Ambulatory Patient Education Author: Rodrigo Sparrow LPN Date: Family Medicine Colorectal Cancer Colorectal cancer is an abnormal growth of tissue (tumor) in the colon or rectum that is cancerous (malignant). Unlike noncancerous (benign) tumors, malignant tumors can spread to other parts of your body. The colon is the large bowel or large intestine. The rectum is the last several inches of the colon. RISK FACTORS The exact cause of colorectal cancer is unknown. However, the following factors may increase your chances of getting colorectal cancer: Age older than 50 years. Abnormal growths (polyps) on the inner wall of the colon or rectum. Diabetes. race. Family history of hereditary nonpolyposis colorectal cancer. This condition is caused by changes in the genes that are responsible for repairing mismatched DNA. Personal history of cancer. A person who has already had colorectal cancer may develop it a second time. Also, women with a history of ovarian, uterine, or breast cancer are at a somewhat higher risk of developing colorectal cancer. Certain hereditary conditions. Eating a diet that is high in fat (especially animal fat) and low in fiber , fruits, and vegetables. Sedentary lifestyle. Inflammatory bowel disease, including ulcerative colitis and Crohn's disease. Smoking. Excessive alcohol use. SYMPTOMS Early colorectal cancer often does not cause symptoms. As the cancer grows, symptoms may include: Changes in bowel habits. Diarrhea. Constipation. Feeling like the bowel does not empty completely after a bowel movement. Blood in the stool. Stools that are narrower than usual. Abdominal discomfort, pain, bloating, fullness, or cramps. Frequent gas pain. Unexplained weight loss. Constant tiredness. Nausea and vomiting. DIAGNOSIS Your health care provider will ask about your medical history. He or she may also perform a number of procedures, such as: A physical exam. A digital rectal exam. A fecal occult blood test. A barium enema. Blood tests. X-rays. Imaging tests, such as CT scans or MRIs. Taking a tissue sample (biopsy) from your colon or rectum to look for cancer cells. A sigmoidoscopy to view the inside of the last part of your colon. A colonoscopy to view the inside of your entire colon. An endorectal ultrasound to see how deep a rectal tumor has grown and whether the cancer has spread to lymph nodes or other nearby tissues. Your cancer will be staged to determine its severity and extent. Staging is a careful attempt to find out the size of the tumor, whether the cancer has spread , and if so, to what parts of the body. You may need to have more tests to determine the stage of your cancer. The test results will help determine what treatment plan is best for you. Stage 0. The cancer is found only in the innermost lining of the colon or rectum. Stage I. The cancer has grown into the inner wall of the colon or rectum. The cancer has not yet reached the outer wall of the colon. Stage II. The cancer extends more deeply into or through the wall of the colon or rectum. It may have invaded nearby tissue, but cancer cells have not spread to the lymph nodes. Stage III. The cancer has spread to nearby lymph nodes but not to other parts of the body. Stage IV. The cancer has spread to other parts of the body, such as the liver or lungs. Your health care provider may tell you the detailed stage of your cancer, which includes both a number and a letter. TREATMENT Depending on the type and stage, colorectal cancer may be treated with surgery, radiation therapy, chemotherapy, targeted therapy, or radiofrequency ablation. Some people have a combination of these therapies. Surgery may be done to remove the polyps from your colon. In early stages, your health care provider may be able to do this during a colonoscopy. In later stages, surgery may be done to remove part of your colon. HOME CARE INSTRUCTIONS Take medicines only as directed by your health care provider. Maintain a healthy diet. Consider joining a support group. This may help you learn to cope with the stress of having colorectal cancer. Seek advice to help you manage treatment of side effects. Keep all follow-up visits as directed by your health care provider. Inform your cancer specialist if you are admitted to the hospital. SEEK MEDICAL CARE IF: Your diarrhea or constipation does not go away. Your bowel habits change. You have increased abdominal pain. You notice new fatigue or weakness. You lose weight. Document Released: 07/14/2006 Document Revised: 11/28/2014 Document Reviewed: ExitCare Patient Information 2015 [employer]. This information is not intended to replace advice given to you by your health care provider. Make sure you discuss any questions you have with your health care provider. No follow up information was provided.
--- OUTSIDE RECORDS SUMMARY | 2016-12-11 09:40 | XMS REPORT | Referral Summary ---
Author Author [facility] Organization [facility] Address Unknown Phone Unavailable Care Team Providers Care Building Guard Deputy Sheriff Name Role Phone Pablo Prabhakar Primary Care Physician [phone] Encounter [facility] Date(s): 08/22/15 - 08/22/15 [facility] [address] [place], [place] [address] Discharge Disposition: 01-Home or Self Care Attending Physician: Edy Rutherford MD Admitting Physician: Edy Rutherford MD Referring Physician: Sesar Prabhakar MD Vital Signs No data available for this section Problem List Condition Effective Dates Status Health [...] 0 Refill(s) Start Date: 12/17/14 Status: Ordered [place] 5 mg-325 mg oral tablet 1-2 tabs, [...] Colonoscopy 06/08/15 Bypass Graft Coronary Artery2 12/12/14 [place] [facility] Endoscopic (Left)3 12/12/14 Hernia repair4 2010 Hernia 1971 Hernia 1969 Tonsillectomy and adenoidectomy 194 REPLACE EAR DRUM - LEFT 1auto-populated from documented surgical case 2auto-populated from documented surgical case 3auto-populated from documented surgical case 4X 3 Social History Social History Type Response Smoking Status Former smoker Assessment and Plan No data available for this section
--- OUTSIDE RECORDS SUMMARY | 2016-12-11 09:40 | XMS REPORT | Referral Summary ---
Author Author [facility] Organization [facility] Address Unknown Phone Unavailable Care Team Providers Care General Supervisor Name Role Phone Pablo Prabhakar Primary Care Physician [phone] Encounter Date(s): 09/23/16 - 09/23/16 [facility] Surgery [address] [place], [place] [address] Discharge Diagnosis: Encounter for screening colonoscopy Discharge Disposition: 01-Home or Self Care Attending Physician: Edy Rutherford MD Admitting Physician: Edy Rutherford MD Vital Signs Most recent to 1 oldest [Reference Range]: Temperature Temporal 37.2 degC Artery [36.3-37.8 (09/23/16 6:37 AM) degC] Peripheral Pulse 82 bpm Rate [60-100 bpm] (09/23/16 6:37 AM) Respiratory Rate 16 br/min [14-20 br/min] (09/23/16 6:37 AM) Blood Pressure 154/80 mmHg [90-140/60-90 mmHg] *HI* (09/23/16 6:37 AM) SpO2 94 % (09/23/16 6:37 AM) Problem List Condition Effective Dates Status Health Status Informant Acute Resolved pain(Confirmed) Allergies(Confirmed) Active Anxiety(Confirmed) Active patient Coronary Active patient arteriosclerosis(Con firmed)1 At risk for unstable Resolved blood glucose level(Confirmed)2 At risk of pressure Resolved sore(Confirmed) Bowel Resolved dysfunction(Confirme d)3 Depression(Confirmed Active patient ) GERD Active patient (gastroesophageal reflux disease)(Confirmed) High Active cholesterol(Confirme d) Hypertension(Confirm Active patient ed) Hypothyroid(Confirme Active patient d) Impaired skin Resolved integrity(Confirmed) 4 Obesity(Confirmed) Active patient Adenomatous rectal Active polyp(Confirmed) Tissue perfusion Resolved alteration(Confirmed )5 Tobacco Resolved patient user(Confirmed) Type 2 1985 Active diabetes(Confirmed) 13 yrs ago 2Problem added automatically by system based on initiation of At Risk for Unstable Blood Glucose Plan of Care 3Problem added automatically by system based on initiation of Bowel Dysfunction Plan of Care 4Problem added automatically by system based on initiation of Impaired Skin Integrity Plan of Care 5Problem added automatically by system based on initiation [...] Refill(s) Start Date: 06/20/15 Status: Ordered Results Chemistry Most recent to 1 oldest [Reference Range]: Blood Glucose, 154 mg/dL Capillary [74-106 *HI* mg/dL] (09/23/16 6:51 AM) Immunizations Given and Recorded Vaccine Date Status Refusal Reason tetanus-diphth toxoids (Td) adult/adol 02/09/02 Given Procedures Procedure Date Related Diagnosis Body Site Colonoscopy 09/23/16 Resection Colon Low Anterior Laparoscopic 09/18/15 Robotic1 Endoscopy Microsurgery Transanal2 08/17/15 Colonoscopy 06/08/15 Bypass Graft Coronary Artery3 12/12/14 Corinne Vein Endoscopic (Left)4 12/12/14 Hernia repair5 2010 Hernia 1971 Hernia 1969 Tonsillectomy and adenoidectomy 194 REPLACE EAR DRUM - LEFT 1auto-populated from documented surgical case 2auto-populated from documented surgical case 3auto-populated from documented surgical case 4auto-populated from documented surgical case 5X 3 Social History Social History Type Response Smoking Status Former smoker Assessment and Plan Extracted from: Title: Ambulatory Patient Education Author: Juliana Schroeder RN Date: 09/23/16 [facility] [place] [phone] [facility] [phone] Endoscopy discharge instructions Diet Start with liquids, then light foods, then progress to normal foods. Medication Resume routine medications. Follow- up Care If any problems occur or if you have any further questions, please contact your physician at [phone]. In an emergency, call [phone] ([phone]), if you cannot reach your physician. If you find that you cannot contact your physician, but feel that your signs and symptoms warrant a physicians attention, go to an Emergency room which is the closest to you. You have had: X Colonoscopy You should rest today. You have had sedating medicines. Until tomorrow please: Do NOT drive or operate hazardous machinery or power tools. Do NOT drink alcoholic beverages, not even beer or wine. Do NOT make important or legal decisions. Do NOT shower or bathe as this may cause dizziness. Because of the sedation you have received, we ask that a responsible adult be with you for the rest of the day for your safety and protection. Call your doctor promptly if you have: Redness or swelling at IV site. If fever over 101degree Pain not relieved by pain medication by Tylenol. Coughing or spitting up blood. Persistent nausea and vomiting. Excessive blood with bowel movement. Findings: You had 3 small polyps removed. Further recommendations will follow once the pathology report is available. No follow up information was provided.
[2016-12-11 10:19] LABS: BASOPHILS % (AUTO) 0.8 % (0-2); EOSINOPHILS # (AUTO) 0.2 T/MM3 (0-0.5); EOSINOPHILS % (AUTO) 4.1 % (0-4); HGB - HEMOGLOBIN 12.3 GM/DL (13.5-17.5); LYMPHOCYTES % (AUTO) 21.5 % (23-45); MEAN CORPUSCULAR HGB 31.1 UUG (26-34); MEAN CORPUSCULAR HGB CONC(MCHC 33.2 GM/DL (31-37); MEAN CORPUSCULAR VOLUME 93.7 UM3 (80-100); MEAN PLATELET VOLUME 9.1 UM3 (9.4-12.4); MONOCYTES # (AUTO) 0.5 T/MM3 (0-0.8); MONOCYTES % (AUTO) 10.1 % (0-9.0); NEUTROPHILS #(AUTO)-ABSOLUTE 3.1 T/MM3 (1.8-7.7); NEUTROPHILS % (AUTO) 63.5 % (33-66); RED BLOOD COUNT 3.95 M/MM3 (4.50-5.90); WBC - WHITE BLOOD COUNT 4.8 T/MM3 (4.5-11.0)
[2016-12-11] MEDS: PROPARACAINE 0.5% EYE DROPS 15ml LEFT EYE SCH ×3 (10:24→10:51)
[2016-12-11] MEDS: CYCLOPENTOLATE 2% EYE DROPS 2ml LEFT EYE SCH ×3 (10:25→10:51)
[2016-12-11] MEDS: TROPICAMIDE 1% EYE DROPS 3ml LEFT EYE SCH ×3 (10:26→10:51)
[2016-12-11] MEDS: PHENYLEPHRINE 2.5% EYE DROPS 5ml LEFT EYE SCH ×3 (10:26→10:51)
[2016-12-11] MEDS: MOXIFLOXACIN 0.5% EYE DROPS 3ml LEFT EYE SCH ×3 (10:27→10:51)
[2016-12-11 10:30] LABS: ALBUMIN 4.5 G/DL (3.5-5.0); ALBUMIN/GLOBULIN RATIO 1.5 RATIO (1.1-2.2); ALKALINE PHOSPHATASE 57 U/L (38-126); ALT (SGPT) 53 U/L (21-72); ANION GAP 16 MEQ/L (5-15); AST (SGOT) 52 U/L (17-59); BUN/CREATININE RATIO 17 RATIO (6-26); CALCIUM 8.7 MG/DL (8.4-10.2); CHLORIDE 106 MEQ/L (98-107); CO2 - CARBON DIOXIDE 23 MEQ/L (22-30); CREATININE 1.1 MG/DL (0.8-1.5); GLOMERULAR FILTRATION RATE 66; GLUCOSE 177 MG/DL (75-110); POTASSIUM 4.4 MEQ/L (3.6-5); SODIUM 145 MEQ/L (134-144); TOTAL PROTEIN 7.5 G/DL (6.3-8.2)
[2016-12-11] MEDS: NEPAFENAC 0.1% EYE DROPS 3ml LEFT EYE SCH ×3 (11:44→11:53)
--- NOTE | 2016-12-11 11:57 | ANESPREOP ---
Anesthesia Record Date and Time DATE: 12/11/16 TIME: 11:54 Pre-Op Diagnosis lt. cat. Proposed Surgical Procedure LEFT CATARACT Allergies: Coded Allergies: No Known Allergies (Verified , 12/11/16) Ht/Wt/BMI Height: 5 ' 10.00 " Weight: 114.800 kg BMI: 36.3 kg/m2 Vital Signs Date Time Temp Pulse Resp B/P Pulse Ox O2 Delivery O2 Flow Rate FiO2 12/11/16 10:04 98.3 73 19 180/76 95 Room Air Medications Inpatient Medications Current Medications Medications (Trade) Dose Ordered Sig/Srinivas Start Time Stop Time Status Last Admin Dose Admin Cyclopentolate HCl (Cyclogyl 2%) 1 drop Q5M 12/11/16 17:00 12/11/16 17:11 12/11/16 10:51 1 DROP Tropicamide (Mydriacyl 1% Eye Drops) 1 drop Q5M 12/11/16 17:00 12/11/16 17:11 12/11/16 10:51 1 DROP Proparacaine HCl (Alcaine 0.5% Eye Drops) 1 drop Q5M 12/11/16 17:00 12/11/16 17:11 12/11/16 10:51 1 DROP Phenylephrine HCl (Mannie-Synephrine 2.5% Eye Drops) 1 drop Q5M 12/11/16 17:00 12/11/16 17:11 12/11/16 10:51 1 DROP Moxifloxacin HCl 1 drop 1 drop Q5M 12/11/16 17:00 12/11/16 17:11 12/11/16 10:51 1 DROP Lactated Ringer's (Lactated Ringers) 1,000 ml @ 50 mls/hr Q20H 12/11/16 17:00 12/11/16 17:00 DC Nepafenac (Nevanac 0.1% Eye Drops) 1 drop Q5M 12/11/16 11:45 12/11/16 11:56 12/11/16 11:53 1 DROP Allopurinol (Allopurinol) 300 Mg Tablet, 1 TAB PO DAILY, (Reported) Last Taken: on 12/10/16 0800 Aspirin (Aspir 81) 81 Mg Tablet.dr, 1 TAB PO DAILY, (Reported) Last Taken: on 12/10/16 0800 Cetirizine HCl (Cetirizine HCl) 10 Mg Tablet, 1 TAB PO BID, (Reported) Last Taken: on 12/10/16 08 Citalopram (Celexa) 10 Mg Tablet, 10 MG PO DAILY, (Reported) Last Taken: on 12/10/16 08 Clopidogrel Bisulfate (Clopidogrel) 75 Mg Tablet, 1 TAB PO DAILY, (Reported) Last Taken: on 12/10/16 08 Docusate Sodium (Stool Softener) 100 Mg Capsule , 2 CAP PO HS, (Reported) Last Taken: on Unknown Date & Time Ezetimibe (Zetia) 10 Mg Tablet, 1 TAB PO DAILY, (Reported) Last Taken: on 12/10/16 08 Fenofibrate,Micronized (Fenofibrate) 160 Mg Tablet, 160 MG PO DAILY, (Reported) Last Taken: on Unknown Date & Time Ferrous Sulfate (Ferrous Sulfate) 1 Tab Tablet, 1 TAB PO DAILY, (Reported) Last Taken: on 12/10/16 08 Fish Oil/[place]-3 Fatty Acids (Fish Oil 1,000 Mg Capsule) 1 Cap Capsule, 1 CAP PO DAILY, (Reported) Last Taken: on 12/10/16 08 Fluticasone Propionate (Flonase) 16 Gm [place].susp, 2 SPRAY EA NOSTRIL BID, (Reported) Last Taken: on 12/10/16 220 Furosemide (Lasix) 40 Mg Tablet, 1 TAB PO DAILY , (Reported) Last Taken: on 12/10/16 08 Hydrocodone/Acetaminophen ([place] 5-325 Tablet) 5-325 Tablet, 1-2 TAB PO Q4HPRN PRN for PAIN Last Taken: on Unknown Date & Time Insulin Aspart (Novolog Flexpen) 1 Unit Pen, 25 UNIT SQ WB, (Reported) Last Taken: on 12/10/16 0800 Insulin Aspart (Novolog) 100 Unit/Ml Inj, 23 UNIT SQ WL, (Reported) Last Taken: on 12/10/16 1200 Insulin Aspart (Novolog) 100 Unit/Ml Inj, 25 UNIT SQ WS, (Reported) Last Taken: on 12/10/16 1900 Insulin Glargine (Lantus) 100 U/Ml Vial, 70 U SQ HS, (Reported) Last Taken: on 12/10/16 220 Insulin Glargine,Hum.rec.anlog (Lantus) 100 Unit/Ml Inj, 45 UNIT SQ AMI, (Reported) Last Taken: on 12/10/16 0700 Labetalol HCl (Labetalol HCl) 100 Mg Tablet, 1 TAB PO BID, (Reported) Last Taken: on Unknown Date & Time Levothyroxine Sodium (Levothyroxine Sodium) 50 Mcg Tablet, 1 TAB PO DAILY, (Reported) Last Taken: on 12/10/16 0700 Metoclopramide HCl (Metoclopramide HCl) 5 Mg Tablet, 5 MG PO ACHS, (Reported) Take 1 tablet, by mouth, 4 times a day (with meals and at bedtime). Last Taken: on 12/10/162199 Multivitamins W-Minerals/Lut (Centrum Silver Tablet) 1 Tab Tablet, 1 TAB PO DAILY, (Reported) Last Taken: on 12/10/16 08 Ondansetron HCl (Zofran) 4 Mg Tablet, 4 MG PO Q6H Last Taken: on Unknown Date & Time Potassium Chloride (Klor-Con 10) 10 Meq Tablet.sa, 1 TAB PO DAILY, (Reported) Last Taken: on 12/10/162199 Primidone (Primidone) 50 Mg Tablet, 50 MG PO TID, (Reported) Take 1 tablet, by mouth, 3 times a day. Last Taken: on 12/10/162199 Propranolol HCl (Propranolol HCl) 60 Mg Cap.sa.24h, 1 CAP PO DAILY, (Reported) Last Taken: on 12/10/16 08 Rosuvastatin Calcium (Crestor) 10 Mg Tablet, 10 MG PO DAILY, (Reported) Take 1 tablet, by mouth, one time a day at bedtime. Last Taken: on 12/10/16 08 Tamsulosin Hcl (Flomax) 0.4 Mg Cap.sr.24h, 0.4 MG PO DAILY, (Reported) Last Taken: on 12/10/16 08 Temazepam (Temazepam) 15 Mg Capsule, 1 TAB PO HS, (Reported) Last Taken: on 12/10/162199 Timolol Maleate 0.5% (Timolol Maleate 0.5%) 15 Ml Drops, 1 DROP BOTH EYES BID, (Reported) Last Taken: on 12/10/162199 Currently on Beta Dav: Yes Medical/Surgical History Anesthesia PMH: Reports: *Diabetes, *Dyspnea, *Hypertension, Arthritis, Glaucoma (ON EYE GTTS), Obesity, Renal Disease (CHRONIC RENAL FAILURE), Sleep Apnea, Thyroid Disease, Denies: *Angina, *VT, Anesthesia Reactions (NO AIRWAY ISSUES), Asthma, Blood Transfusion Reac, CHF, COPD, CVA/Stroke/TIA, Cancer, Clotting Problems, Deep Vein Thrombosis, Headaches, Hepatitis, Hiatal Hernia, Malignant Hyperthermia, Pneumonia, Reflux, Rheumatic Fever, Seizures, Tuberculosis Smoking Status: Former smoker Has pt. smoked today?: No Use Chewing Tobacco?: No Second Hand Exposure: No Substance Use Type: does not use Substance last used: unknown Alcohol Intake: none Last Drink: unknown Past Surgical History Orthopedic Surgeries: Yes - FOOT SURGERY,LEFT KNEE SCOPE Abdominal Surgeries: Yes - COLON RESECTION,HERNIA REPAIR Genitourinary Surgeries: Yes - HEMORRHOID SURG Cardiac Surgeries: Yes - STENTS ,TRIPPLE BYPASS,HEART CATHS Endocrine Surgeries: No Reproductive Surgeries: No Neurological Surgeries: No Ear Surgeries: Yes - L TYMPANOPLASTY Nose Surgeries: Yes - SEPTOPLASTY, TURBINOPLASTY Throat Surgeries: No Other Surgeries: Yes - COLONOSCOPYS Anesthesia Adverse Reactions: FOUND none Family Hx of Anesthesia Advers: none Hx of Motion Sickness: No Pertinent Findings Laboratory Tests 12/11/16 10:01 EKG Rhythm: Sinus Rhythm Physical Exam Respiratory: Bilat breath sounds equal, Lungs clear Cardiovascular: FOUND Regular rate, rhythm, FOUND No murmur Airway Assessment Mallampati Score: III TMD: 2 Fingerbreadths Neck Extension: Fair Overall Assessment: May Be Diff Mask Vent., May Be Diff Intubation ASA: 3 Plan Anesthesia Plan: TIVA Discussion Discussed risks/options/alternatives of anesthesia and questions answered. Patient consents. Nursing pain assessment noted. Present: Spouse Attestation Statement Prior to the delivery of any anesthetic medication, I examined the patient, developed the plan, obtained the patient's consent and discussed the risk and benefits of the procedure with the patient/guardian. MULU MARTIN CRNA December 11, 2016 11:57
[2016-12-11] MEDS ORDERED: PROPOFOL 500mg 50 ML IV ONE (12:00)
[2016-12-11] MEDS ORDERED: LIDOCAINE 2% (20mg/ml) 5ml PF SDV ONE (12:01)
[2016-12-11] MEDS ORDERED: FENTANYL 100mcg/2ml INJECTION ONE (12:40)
[2016-12-11] MEDS ORDERED: PROPOFOL 200mg 20 ML IV ONE (12:57)
--- NOTE | 2016-12-11 13:36 | ANESPO ---
Post-Op Note Date 12/11/16 Time: 13:35 Status Pt Participated in Evaluation: Pt participated in person Vital Signs Date Time Temp Pulse Resp B/P Pulse Ox O2 Delivery O2 Flow Rate FiO2 12/11/16 13:30 62 14 174/83 92 Room Air 12/11/16 13:13 97.3 Respiratory Function: Airway patent, Regular respirations Cardiovascular Function: Regular pulse Pain Level Intensity: 0 (0) Hydration: Taking po fluids, IV infusing Complications during Recovery None apparent Post-Anesthesia Notes pt. esepranza. well Follow-Up Instructions Instructions Per Surgeon Additional Information none MULU MARTIN CRNA December 11, 2016 13:36
[2016-12-11] MEDS ORDERED: BRIMONIDINE 0.2% EYE DROPS 5ml LEFT EYE ONE (14:55)
[2016-12-11] MEDS ORDERED: VANCOMYCIN 500 MG INJECTION IO ONE (14:55)
[2016-12-11] MEDS ORDERED: LIDOCAINE 1% (10mg/ml) 30ml SDV IJ ONE (14:55)
[2016-12-11] MEDS ORDERED: TETRACAINE 0.5% EYE DROPS 4ml BOTTLE OP ONE (14:55)
[2016-12-11] MEDS ORDERED: NS FOR INJ. 20 ML VIAL ONE (15:04)
[2016-12-11] MEDS ORDERED: NORMAL SALINE 1,000 ML IV ONE (17:00)
[2016-12-11] MEDS ORDERED: LR 1,000 ML IV SCH (17:00)
[2016-12-11] MEDS ORDERED: LIDOCAINE 1% (10mg/ml) 2ml SDV INJ ONE (17:00)
--- NOTE | 2016-12-13 14:14 | OPNOTEF ---
DATE OF PROCEDURE 12/11/2016 PREOPERATIVE DIAGNOSIS Cataract, left eye. POSTOPERATIVE DIAGNOSIS Cataract, left eye. PROCEDURE Phacoemulsification with implantation of 21.5 diopter intraocular lens model SA60AT, left eye. ANESTHESIA General monitored by Cara Brandon CRNA. SURGEON Katelin Mccurdy MD PROCEDURE IN DETAIL The patient came to the [facility] and was escorted to the preanesthesia area where the appropriate monitoring, eyedrops, and topical anesthetic were administered. The patient was then taken into the operating room and placed under general anesthesia, then the eye was prepped and draped in the standard sterile manner for ophthalmic surgery. A lid speculum was placed between the lids and the eye was irrigated with 5% Povidine iodine solution, followed by copious irrigation with sterile balanced salt solution after three minutes. The eye surgery began with the initial side port incision through the peripheral clear cornea. Lidocaine preservative free 1% was injected into the anterior chamber. Viscoelastic was exchanged for aqueous. A clear cornea incision was made just anterior to the vascular arcade with a steel keratome blade. A continuous curvilinear anterior capsulorrhexis was performed, followed by hydrodissection and hydrodelineation of the cataract. The phacoemulsification tip was then inserted through the incision into the anterior chamber, and the nucleus of the cataract was emulsified. The remaining cortical material was then aspirated and the posterior capsule was cleaned and polished. A posterior chamber intraocular lens was then implanted into the capsular bag with viscoelastic support. The viscoelastic was then removed from the eye by aspiration. The clear cornea incision was inspected to ensure a water tight seal. The lid speculum was removed. Vigamox, Nevanac, and Brimonidine eyedrops were instilled onto the eye and an eye shield was taped over the eye. The general anesthesia was reversed. Once the patient was extubated, he went to the recovery area and was dismissed to the responsible republican with postoperative instructions and a planned follow-up visit. BERNICE
== END 2016-12-11 14:20 | disposition home or self-care (01) ==
LOC: NSC 09:34
PROVIDERS: ATTEND Ophthalmology
DX: E11.36 Type 2 diabetes mellitus with diabetic cataract (principal); H26.9 Unspecified cataract; I25.10 Atherosclerotic heart disease of native coronary artery without angina pectoris; E78.5 Hyperlipidemia, unspecified; N40.0 Benign prostatic hyperplasia without lower urinary tract symptoms; G25.0 Essential tremor; Z79.4 Long term (current) use of insulin; Z79.02 Long term (current) use of antithrombotics/antiplatelets; Z79.899 Other long term (current) drug therapy; Z95.1 Presence of aortocoronary bypass graft; Z95.5 Presence of coronary angioplasty implant and graft; Z87.891 Personal history of nicotine dependence; Z90.49 Acquired absence of other specified parts of digestive tract; Z86.010 Personal history of colon polyps
CPT/HCPCS: 36415; 66984; 80053; 85025; A9270; C1780; J0330; J2704; J3010; J3370; J7030; J7120